=== PATIENT | male | born 1995 | race African-American/Black ===

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

== ENCOUNTER 2017-01-03 01:09 | Emergency (ER) | payer MEDICAID ==
[2017-01-03 01:26] VITALS: BP 109/70
[2017-01-03] MEDS ORDERED: Lidocaine 1% 20 ML MDV INJECT ONE (01:28)
[2017-01-03] MEDS ORDERED: Lidocaine/EPINEPHrine/Tetracaine Soln 1 ML TOP ONE (01:30)
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
== END 2017-01-03 02:54 | disposition home or self-care (01) ==
LOC: MW.ED 01:09
DX: S01.81XA Laceration without foreign body of other part of head, initial encounter (principal); Z90.49 Acquired absence of other specified parts of digestive tract; Z87.891 Personal history of nicotine dependence; J45.909 Unspecified asthma, uncomplicated; Z88.5 Allergy status to narcotic agent; Y04.0XXA Assault by unarmed brawl or fight, initial encounter
CPT/HCPCS: 12011; 99283

== ENCOUNTER 2017-01-08 11:30 | Emergency (ER) | payer MEDICAID ==
[2017-01-08 11:57] VITALS: BP 126/87
== END 2017-01-08 11:56 | disposition left against medical advice (07) ==
LOC: MW.ED 11:30
DX: Z53.21 Procedure and treatment not carried out due to patient leaving prior to being seen by health care provider (principal)

== ENCOUNTER 2017-06-13 10:31 | Emergency (ER) | payer SELFPAY ==
[2017-06-13 10:42] VITALS: BP 139/79
--- NOTE | 2017-06-13 10:57 | EDM.PDOC ---
ED HPI GENERAL MEDICAL PROBLEM - General Chief Complaint: Upper Extremity Injury/Pain Stated Complaint: LT SHOULDER PAIN Time Seen by Provider: 06/13/17 10:34 - History of Present Illness INITIAL COMMENTS - FREE TEXT/NARRATIVE: HISTORY AND PHYSICAL: [] History of Present Illness: []21-year-old male here with left shoulder and right hand pain. States he has been having left shoulder pain for years but this morning with severe shoulder pain. He denies any injury. He states that he slept with it above his head this morning with pain. He also notes he is having right hand pain, broke it 2 years ago. States that he may have hit it a couple of days ago and it is swollen and hurting today. He has not taken anything for his pain today. Review of Systems: As per history of present illness and below otherwise all systems reviewed and negative. Past medical history: As per history of present illness and as reviewed below otherwise noncontributory. Surgical history: As per history of present illness and as reviewed below otherwise noncontributory. Social history: No reported history of drug or alcohol abuse. Family history: As per history of present illness and as reviewed below otherwise noncontributory. Physical exam: HEENT: Atraumatic, normocehpalic, pupils reactive, negative for conjunctival pallor or scleral icterus, mucous membranes moist, throat clear, neck supple, nontender, trachea midline. Lungs: Clear to auscultation, breath sounds equal bilaterally, chest non tender. Heart: S1S2, regular, negative for clicks, rubs, or JVD. Abdomen: Soft, nondistended, nontender. Negative for masses or hepatossplenmegaly. Negative for costovertebral tenderness. Pelvis: Stable nontender. Genitourinary: Deferred. Rectal: Deferred Extremities: No obvious deformity or swelling of the left shoulder. Tenderness to palpation of the anterior shoulder over AC joint. Positive Neer's, empty can , and lift off. Right pinky MCP is mildly swollen with minimal tenderness to palpation. Upper extremity strength is 4 out of 5. Neurovascular unremarkable. Neuro: Awake, alert, oriented. Cranial nerves II through XII unremarkable. Cerebellum unremarkable. Motor and sensory unremarkable throughout. Exam nonfocal. Diagnostics: [] Therapeutics: [] Impression: []Right shoulder pain Plan: []Discharged to home. Diclofenac as prescribed. Follow-up with PCP. Please call for an appointment and establish do not have a primary care provider. [facility] [address] [place] [address] Definitive disposition and diagnosis as appropriate pending reevaluation and review of above. [facility] [address] [place], [place] [id number] left shoulder Pain Score (Numeric/FACES): 10 - Related Data Allergies Allergy/AdvReac Type Severity Reaction Status Date / Time morphine Allergy Rash Verified 06/13/17 10:48 Home Meds: Home Meds Albuterol Sulfate [Proair Hfa] 1 puff IH ASDIRECTED PRN 08/12/16 [History] Diclofenac Sodium [IJD: Diclofenac Sodium] 75 mg PO .TWICE DAILY W MEALS #20 tab.ec 06/13/17 [Rx] Past Medical History - Past Health History Medical/Surgical History: Denies Medical/Surgical History HEENT History: Reports: None Cardiovascular History: Reports: None Respiratory History: Reports: Asthma Gastrointestinal History: Reports: None Genitourinary History: Reports: None Musculoskeletal History: Reports: None Neurological History: Reports: None Psychiatric History: Reports: Suicide Attempt Endocrine/Metabolic History: Reports: None Hematologic History: Reports: None Immunologic History: Reports: None Oncologic (Cancer) History: Reports: None Dermatologic History: Reports: None - Infectious Disease History Infectious Disease History: Reports: None - Past Surgical History Head Surgeries/Procedures: Reports: None HEENT Surgical History: Reports: None GI Surgical History: Reports: Appendectomy Social & Family History - Family History Family Medical History: Noncontributory - Tobacco Use Smoking Status *Q: Never Smoker Years of Tobacco use: 3 Packs/Tins Daily: 1 Used Tobacco, but Quit: Yes Month/Year Tobacco Last Used: 1 Second Hand Smoke Exposure: No - Caffeine Use Caffeine Use: Reports: Soda Caffeine Use Comment: 2drinks/day - Recreational Drug Use Recreational Drug Use: Yes Drug Use in Last 12 Months: Yes Recreational Drug Type: Reports: Marijuana/Hashish Recreational Drug Use Frequency: Daily Recreational Drug Last Use: "a month ago" Review of Systems - Review of Systems Review Of Systems: ROS reveals no pertinent complaints other than HPI. ED EXAM, GENERAL - Physical Exam Exam: See Below (see dictation) Course - Vital Signs Last Recorded V/S: Last Vital Signs Temp 37.3 C 06/13/17 10:41 Pulse 82 06/13/17 10:41 Resp 18 06/13/17 10:41 BP 139/79 06/13/17 10:41 Pulse Ox 97 06/13/17 10:41 Departure - Departure Time of Disposition: 10:58 Disposition: Home, Self-Care 01 Condition: Good Clinical Impression: Left anterior shoulder pain - Discharge Information Prescriptions: Diclofenac Sodium [IJD: Diclofenac Sodium] 75 mg PO .TWICE DAILY W MEALS #20 [email or web address] Referrals: PCP,None [Primary Care Provider] - Forms: ED Department Discharge Additional Instructions: The following information is given to patients seen in the emergency department who are being discharged to home. This information is to outline your options for follow-up care. We provide all patients seen in our emergency department with a follow-up referral. The need for follow-up, as well as the timing and circumstances, are variable depending upon the specifics of your emergency department visit. If you don't have a primary care physician on staff, we will provide you with a referral. We always advise you to contact your personal physician following an emergency department visit to inform them of the circumstance of the visit and for follow-up with them and/or the need for any referrals to a consulting specialist. The emergency department will also refer you to a specialist when appropriate. This referral assures that you have the opportunity for followup care with a specialist. All of these measure are taken in an effort to provide you with optimal care, which includes your followup. Under all circumstances we always encourage you to contact your private physician who remains a resource for coordinating your care. When calling for followup care, please make the office aware that this follow-up is from your recent emergency room visit. If for any reason you are refused follow-up, please contact the [facility] emergency department at and asked to speak to the emergency department charge nurse. Your found to have pain in your right shoulder likely a tendinitis Pain medication of diclofenac has been prescribed to your pharmacy electronically Follow-up with your primary care provider If you do not have a primary care provider call one of these clinics as a ER follow-up and establish care [facility] [address] [place] [address] [place], [place] [phone]
--- NOTE | 2017-06-13 10:59 | EDM.PDOC ---
ED HPI GENERAL MEDICAL PROBLEM - General Chief Complaint: Upper Extremity Injury/Pain Stated Complaint: LT SHOULDER PAIN Time Seen by Provider: 06/13/17 10:34 Source of Information: Reports: Patient History Limitations: Reports: No Limitations - History of Present Illness Onset: Today, Sudden Location: Reports: Upper Extremity, Left, Upper Extremity, Right - Related Data Allergies Allergy/AdvReac Type Severity Reaction Status Date / Time morphine Allergy Rash Verified 01/08/17 11:55 Home Meds: Home Meds Albuterol Sulfate [Proair Hfa] 1 puff IH ASDIRECTED PRN 08/12/16 [History] Past Medical History - Past Health History Medical/Surgical History: Denies Medical/Surgical History HEENT History: Reports: None Cardiovascular History: Reports: None Respiratory History: Reports: Asthma Gastrointestinal History: Reports: None Genitourinary History: Reports: None Musculoskeletal History: Reports: None Neurological History: Reports: None Psychiatric History: Reports: Suicide Attempt Endocrine/Metabolic History: Reports: None Hematologic History: Reports: None Immunologic History: Reports: None Oncologic (Cancer) History: Reports: None Dermatologic History: Reports: None - Infectious Disease History Infectious Disease History: Reports: None - Past Surgical History Head Surgeries/Procedures: Reports: None HEENT Surgical History: Reports: None GI Surgical History: Reports: Appendectomy Social & Family History - Family History Family Medical History: Noncontributory - Tobacco Use Smoking Status *Q: Never Smoker Years of Tobacco use: 3 Packs/Tins Daily: 1 Used Tobacco, but Quit: Yes Month/Year Tobacco Last Used: 1 Second Hand Smoke Exposure: No - Caffeine Use Caffeine Use: Reports: Soda Caffeine Use Comment: 2drinks/day - Recreational Drug Use Recreational Drug Use: Yes Drug Use in Last 12 Months: Yes Recreational Drug Type: Reports: Marijuana/Hashish Recreational Drug Use Frequency: Daily Recreational Drug Last Use: "a month ago" Course - Vital Signs Last Recorded V/S: Last Vital Signs Temp 37.3 C 06/13/17 10:41 Pulse 82 06/13/17 10:41 Resp 18 06/13/17 10:41 BP 139/79 06/13/17 10:41 Pulse Ox 97 06/13/17 10:41 Departure - Discharge Information Referrals: PCP,None [Primary Care Provider] -
== END 2017-06-13 11:40 | disposition home or self-care (01) ==
LOC: MW.ED 10:31
DX: M25.512 Pain in left shoulder (principal); Z88.5 Allergy status to narcotic agent; Z79.899 Other long term (current) drug therapy; Z87.891 Personal history of nicotine dependence
CPT/HCPCS: 99282; 99283

== ENCOUNTER 2017-07-10 06:34 | Emergency (ER) | payer SELFPAY ==
[2017-07-10] MEDS ORDERED: Albuterol/Ipratropium 3.0-0.5 MG/3 ML Neb Soln NEB ONE (06:55)
--- NOTE | 2017-07-10 06:59 | EDM.PDOC ---
ED HPI GENERAL MEDICAL PROBLEM - General Chief Complaint: Respiratory Problem Stated Complaint: ASTHMA Time Seen by Provider: 07/10/17 06:56 Source of Information: Reports: Patient - History of Present Illness INITIAL COMMENTS - FREE TEXT/NARRATIVE: HISTORY AND PHYSICAL: History of present illness: [Patient with asthma presents with 2 weeks of shortness breath and chest tightness after running out of medication last night no fever nausea vomiting chills sweats some shortness breath with exertion no headache dizziness palpitation no bowel or urine symptoms ] Review of systems: As per history of present illness and below otherwise all systems reviewed and negative. Past medical history: As per history of present illness and as reviewed below otherwise noncontributory. Surgical history: As per history of present illness and as reviewed below otherwise noncontributory. Social history: No reported history of drug or alcohol abuse. Family history: As per history of present illness and as reviewed below otherwise noncontributory. Physical exam: HEENT: Atraumatic, normocephalic, pupils reactive, negative for conjunctival pallor or scleral icterus, mucous membranes moist, throat clear, neck supple, nontender, trachea midline. Lungs: Clear to auscultation, breath sounds equal bilaterally, chest nontender. post DuoNeb Heart: S1S2, regular, negative for clicks, rubs, or JVD. Abdomen: Soft, nondistended, nontender. Negative for masses or hepatosplenomegaly. Negative for costovertebral tenderness. Pelvis: Stable nontender. Genitourinary: Deferred. Rectal: Deferred. Extremities: Atraumatic, negative for cords or calf pain. Neurovascular unremarkable. Neuro: Awake, alert, oriented. Cranial nerves II through XII unremarkable. Cerebellum unremarkable. Motor and sensory unremarkable throughout. Exam nonfocal. Diagnostics: [Influenza Chest 2 views ] Therapeutics: [DuoNeb ] Solu-Medrol 125 mg IM Medrol Dosepak DuoNeb's HFA Z-Eduardo Impression Acute bronchitis asthma exacerbation Definitive disposition and diagnosis as appropriate pending reevaluation and review of above. chest pain Pain Score (Numeric/FACES): 5 - Related Data Allergies Allergy/AdvReac Type Severity Reaction Status Date / Time morphine Allergy Rash Verified 07/10/17 06:37 Home Meds: Home Meds Albuterol Sulfate [Proair Hfa] 1 puff IH ASDIRECTED PRN 08/12/16 [History] Past Medical History - Past Health History Medical/Surgical History: Denies Medical/Surgical History HEENT History: Reports: None Cardiovascular History: Reports: None Respiratory History: Reports: Asthma Gastrointestinal History: Reports: None Genitourinary History: Reports: None Musculoskeletal History: Reports: None Neurological History: Reports: None Psychiatric History: Reports: Suicide Attempt Endocrine/Metabolic History: Reports: None Hematologic History: Reports: None Immunologic History: Reports: None Oncologic (Cancer) History: Reports: None Dermatologic History: Reports: None - Infectious Disease History Infectious Disease History: Reports: None - Past Surgical History Head Surgeries/Procedures: Reports: None HEENT Surgical History: Reports: None GI Surgical History: Reports: Appendectomy Social & Family History - Family History Family Medical History: Noncontributory - Tobacco Use Smoking Status *Q: Never Smoker Years of Tobacco use: 3 Packs/Tins Daily: 1 Used Tobacco, but Quit: Yes Month/Year Tobacco Last Used: 1 Second Hand Smoke Exposure: No - Caffeine Use Caffeine Use: Reports: Energy Drinks Caffeine Use Comment: 2drinks/day - Recreational Drug Use Recreational Drug Use: Yes Drug Use in Last 12 Months: Yes Recreational Drug Type: Reports: Marijuana/Hashish Recreational Drug Use Frequency: Daily Recreational Drug Last Use: "a month ago" ED ROS GENERAL - Review of Systems Review Of Systems: ROS reveals no pertinent complaints other than HPI. ED EXAM, GENERAL - Physical Exam Exam: See Below Course - Vital Signs Last Recorded V/S: Last Vital Signs Temp 97.6 F 07/10/17 06:38 Pulse 84 07/10/17 06:38 Resp 19 07/10/17 06:38 BP 124/86 07/10/17 06:38 Pulse Ox 95 07/10/17 06:38 - Orders/Labs/Meds Orders: Active Orders 24 hr Category Date Time Status RT Aerosol Therapy [RC] ASDIRECTED Care 07/10/17 06:55 Active Chest 2V [CR] Stat Exams 07/10/17 06:55 Ordered INFLUENZA A+B AG SCREEN [RM] Stat Lab 07/10/17 07:01 Ordered Meds: Medications Discontinued Medications Generic Name Dose Route Start Last Admin Trade Name Freq PRN Reason Stop Dose Admin Albuterol/Ipratropium 3 ml 07/10/17 06:55 07/10/17 07:05 Duoneb 3.0-0.5 Mg/3 Ml NEB 07/10/17 06:56 3 ml ONETIME ONE Administration Methylprednisolone Sodium Succinate 125 mg 07/10/17 07:02 07/10/17 07:10 Solu-Medrol IM 07/10/17 07:03 125 mg ONETIME ONE Administration Departure - Departure Time of Disposition: 07:32 Disposition: Home, Self-Care 01 Condition: Good Clinical Impression: Exacerbation of asthma, Acute bronchitis - Discharge Information Referrals: PCP,None [Primary Care Provider] - Forms: ED Department Discharge Additional Instructions: The following information is given to patients seen in the emergency department who are being discharged to home. This information is to outline your options for follow-up care. We provide all patients seen in our emergency department with a follow-up referral. The need for follow-up, as well as the timing and circumstances, are variable depending upon the specifics of your emergency department visit. If you don't have a primary care physician on staff, we will provide you with a referral. We always advise you to contact your personal physician following an emergency department visit to inform them of the circumstance of the visit and for follow-up with them and/or the need for any referrals to a consulting specialist. The emergency department will also refer you to a specialist when appropriate. This referral assures that you have the opportunity for follow-up care with a specialist. All of these measure are taken in an effort to provide you with optimal care, which includes your follow-up. Under all circumstances we always encourage you to contact your private physician who remains a resource for coordinating your care. When calling for follow-up care, please make the office aware that this follow-up is from your recent emergency room visit. If for any reason you are refused follow-up, please contact the [facility] emergency department at and asked to speak to the emergency department charge nurse. - My Orders Last 24 Hours: My Active Orders 07/10/17 06:55 RT Aerosol Therapy [RC] ASDIRECTED Chest 2V [CR] Stat 07/10/17 07:01 INFLUENZA A+B AG SCREEN [RM] Stat - Assessment/Plan Last 24 Hours: My Active Orders 07/10/17 06:55 RT Aerosol Therapy [RC] ASDIRECTED Chest 2V [CR] Stat 07/10/17 07:01 INFLUENZA A+B AG SCREEN [RM] Stat
[2017-07-10] MEDS ORDERED: methylPREDNISolone Sodium Succinate 125 MG/2 ML SDV IM ONE (07:02)
[2017-07-10 07:42] VITALS: BP 147/87
--- NOTE | 2017-07-10 16:41 | CR ---
EXAM DATE: 07/10/17 PATIENT'S AGE: 21 Patient: KEVON JONES Facility: [place], [place] Site . Site : 1997 Study: XRay Chest [id number]/20/2018 7:30:57 AM Ordering Physician: Doctor Dotson Final Report: HISTORY: Shortness of breath, asthma. TECHNIQUE: Two views of the chest. COMPARISON: 10/30/2016. FINDINGS: The cardiac size and pulmonary vasculature are within normal limits. There is no acute lung infiltrate or pulmonary edema. No pneumothorax or pleural effusion. No acute bony abnormality. IMPRESSION: No acute disease. Dictated by Kenny Bateman MD @ 07/10/2017 7:35:02 AM Dictated by: Kenny Bateman MD @ 07/10/2017 07:35:06 (Electronic Signature) Report Signed by Proxy. CHARITO
== END 2017-07-10 07:41 | disposition home or self-care (01) ==
LOC: MW.ED 06:34
DX: J45.901 Unspecified asthma with (acute) exacerbation (principal); J20.9 Acute bronchitis, unspecified; Z88.5 Allergy status to narcotic agent; Z87.891 Personal history of nicotine dependence
CPT/HCPCS: 71046; 87804; 94640; 96372; 99283; J2930

== ENCOUNTER 2017-09-14 11:31 | Emergency (ER) | payer SELFPAY ==
[2017-09-14] MEDS ORDERED: Ketorolac 60 MG/2 ML SDV IM ONE (11:40)
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
--- NOTE | 2017-09-14 12:19 | CR ---
EXAMINATION: Left shoulder HISTORY: Pain COMPARISON: None TECHNIQUE: 3 views FINDINGS/IMPRESSION: There is no acute osseous abnormality, dislocation, or fracture. Bone mineraliza tion and joint spaces appear normal.
[2017-09-14 13:24] VITALS: BP 126/66
== END 2017-09-14 12:59 | disposition home or self-care (01) ==
LOC: MW.ED 11:31
DX: S49.92XD Unspecified injury of left shoulder and upper arm, subsequent encounter (principal); Z88.5 Allergy status to narcotic agent; V93.3 Fall on board watercraft
CPT/HCPCS: 73030; 96372; 99283; J1885

== ENCOUNTER 2017-10-06 21:54 | Emergency (ER) | payer SELFPAY ==
[2017-10-06] MEDS ORDERED: Sodium Chloride 0.9% 1,000 ML IV ONE (21:57)
[2017-10-06] MEDS ORDERED: methylPREDNISolone Sodium Succinate 125 MG/2 ML SDV IVPUSH ONE (21:57)
[2017-10-06] MEDS ORDERED: Sodium Chloride 0.9% 2.5 ML Syringe FLUSH PRN (21:57)
[2017-10-06] MEDS ORDERED: Albuterol/Ipratropium 3.0-0.5 MG/3 ML Neb Soln NEB ONE (21:57)
[2017-10-06] MEDS ORDERED: Sodium Chloride 0.9% 10 ML Syringe FLUSH PRN (21:57)
[2017-10-06 22:00] VITALS: BP 110/79
--- NOTE | 2017-10-06 22:01 | EDM.PDOC ---
ED HPI GENERAL MEDICAL PROBLEM - General Stated Complaint: ASTHMA/SHORT OF BREATH Time Seen by Provider: 10/06/17 21:57 - History of Present Illness INITIAL COMMENTS - FREE TEXT/NARRATIVE: HISTORY AND PHYSICAL: History of present illness: The patient is a 22-year-old male with a known history of asthma who gets attacks and flareups seasonally and is currently working in [employer] and presents with complaints of 30 minutes of shortness of breath chest tightness and a full day of allergy symptoms including sneezing runny nose and a sore throat. The patient has a rescue inhaler but no preventative as he said he cannot afford it. He says that usually his attacks will occur after he is exposed to the environment and he finished his work and went home and this started 30 minutes ago. He is not having abdominal pain or vomiting and has had no fevers. He otherwise was in his usual state of good health before this started. He said this is the usual presentation of his asthma. Review of systems: As per history of present illness and below otherwise all systems reviewed and negative. Past medical history: As per history of present illness and as reviewed below otherwise noncontributory. Surgical history: As per history of present illness and as reviewed below otherwise noncontributory. Social history: No reported history of drug or alcohol abuse. Family history: As per history of present illness and as reviewed below otherwise noncontributory. Physical exam: General: Well-developed well-nourished man who is speaking very softly and is somewhat breathless on my evaluation. His O2 sat was 93% on room air. He has a dry cough HEENT: Atraumatic, normocephalic, negative for conjunctival pallor or scleral icterus, mucous membranes moist, throat clear there is posterior oropharyngeal erythema but uvula is midline and there is no cervical adenopathy or nuchal rigidity,, neck supple, nontender, trachea midline. Lungs: Diminished breath sounds and exchange throughout with some scattered wheezing and there is some abdominal work of breathing, there is no stridor breath sounds equal bilaterally, chest nontender. Heart: S1S2, regular rhythm and sightly tachycardic rate on my evaluation but no overt murmur Abdomen: Soft, nondistended, nontender. NABS Pelvis: Deferred Genitourinary: Deferred. Rectal: Deferred. Extremities: Atraumatic, negative for cords or calf pain. Neurovascular unremarkable. Neuro: Awake, alert, oriented. Cranial nerves II through XII unremarkable. Cerebellum unremarkable. Motor and sensory unremarkable throughout. Exam nonfocal. Diagnostics: Rapid strep chest x-ray Therapeutics: IV fluids duo neb Solu-Medrol He is moving air much better after the duo neb and would like to hold off doing a second one at this time. I talked to him about his work and allergy symptoms and needing to be on maintenance such as Edel or Claritin [id number] and using Flonase. He has taken the oxygen off as he does not like the way it feels. We'll continue to monitor his progress and disposition once the chest x- ray is performed and resulted. He is aware of chest x-ray result and would like to go home. I will give him a spacer to use with his inhaler, and albuterol refill and prednisone. Impression: Asthma exacerbation Definitive disposition and diagnosis as appropriate pending reevaluation and review of above. Chest Pain Score (Numeric/FACES): 4 - Related Data Allergies Allergy/AdvReac Type Severity Reaction Status Date / Time morphine Allergy Rash Verified 09/14/17 11:41 Home Meds: Home Meds Albuterol Sulfate [Proair Hfa] 1 puff IH ASDIRECTED PRN 08/12/16 [History] Past Medical History - Past Health History Medical/Surgical History: Denies Medical/Surgical History HEENT History: Reports: None Cardiovascular History: Reports: None Respiratory History: Reports: Asthma Gastrointestinal History: Reports: None Genitourinary History: Reports: None Musculoskeletal History: Reports: None Neurological History: Reports: None Psychiatric History: Reports: Suicide Attempt Endocrine/Metabolic History: Reports: None Hematologic History: Reports: None Immunologic History: Reports: None Oncologic (Cancer) History: Reports: None Dermatologic History: Reports: None - Infectious Disease History Infectious Disease History: Reports: None - Past Surgical History Head Surgeries/Procedures: Reports: None HEENT Surgical History: Reports: None GI Surgical History: Reports: Appendectomy Social & Family History - Family History Family Medical History: Noncontributory - Caffeine Use Caffeine Use: Reports: Energy Drinks Caffeine Use Comment: 2drinks/day ED ROS GENERAL - Review of Systems Review Of Systems: ROS reveals no pertinent complaints other than HPI. ED EXAM, GENERAL - Physical Exam Exam: See Below (See dictation) Course - Vital Signs Last Recorded V/S: Last Vital Signs Temp 36.6 C 10/06/17 21:59 Pulse 110 H 10/06/17 21:59 Resp 24 H 10/06/17 21:59 BP 110/79 10/06/17 21:59 Pulse Ox 93 L 10/06/17 21:59 - Orders/Labs/Meds Orders: Active Orders 24 hr Category Date Time Status RT Aerosol Therapy [RC] ASDIRECTED Care 10/06/17 21:58 Active Chest 1V Frontal [CR] Stat Exams 10/06/17 21:57 Taken CULTURE STREP A CONFIRMATION [] Stat Lab 10/06/17 22:11 Results STREP SCRN A RAPID W CULT CONF [] Stat Lab 10/06/17 22:11 Ordered Sodium Chloride 0.9% [Saline Flush] Med 10/06/17 21:57 Active 10 ml FLUSH ASDIRECTED PRN Sodium Chloride 0.9% [Saline Flush] Med 10/06/17 21:57 Active 2.5 ml FLUSH ASDIRECTED PRN Saline Lock Insert [OM.PC] Stat Oth 10/06/17 21:57 Ordered Medication Orders Sodium Chloride (Saline Flush) 10 ml FLUSH ASDIRECTED PRN PRN Reason: Keep Vein Open Last Admin: 10/06/17 22:08 Dose: 10 ml Sodium Chloride (Saline Flush) 2.5 ml FLUSH ASDIRECTED PRN PRN Reason: Keep Vein Open Last Admin: 10/06/17 22:08 Dose: 2.5 ml Meds: Medications Generic Name Dose Route Start Last Admin Trade Name Freq PRN Reason Stop Dose Admin Sodium Chloride 10 ml 10/06/17 21:57 10/06/17 22:08 Saline Flush FLUSH 10 ml ASDIRECTED PRN Administration Keep Vein Open Sodium Chloride 2.5 ml 10/06/17 21:57 10/06/17 22:08 Saline Flush FLUSH 2.5 ml ASDIRECTED PRN Administration Keep Vein Open Discontinued Medications Generic Name Dose Route Start Last Admin Trade Name Freq PRN Reason Stop Dose Admin Albuterol/Ipratropium 3 ml 10/06/17 21:57 10/06/17 22:07 Duoneb 3.0-0.5 Mg/3 Ml NEB 07/17/18 21:58 3 ml ONETIME ONE Administration Sodium Chloride 1,000 mls @ 999 mls/hr 10/06/17 21:57 10/06/17 22:07 Normal Saline IV 10/06/17 22:57 999 mls/hr STAT ONE Administration Methylprednisolone Sodium Succinate 125 mg 10/06/17 21:57 10/06/17 22:07 Solu-Medrol IVPUSH 10/06/17 21:58 125 mg ONETIME ONE Administration Methylprednisolone Sodium Succinate Confirm 10/06/17 22:09 10/06/17 22:13 Solu-Medrol Administered 10/06/17 22:10 Not Given Dose 125 mg .ROUTE .STK-MED ONE Departure - Departure Time of Disposition: 23:31 Disposition: Home, Self-Care 01 Condition: Good Clinical Impression: Exacerbation of asthma Qualifiers: Asthma severity: mild Asthma persistence: unspecified Qualified Code(s): J45.901 - Unspecified asthma with (acute) exacerbation - Discharge Information Referrals: PCP,None [Primary Care Provider] - Additional Instructions: The following information is given to patients seen in the emergency department who are being discharged to home. This information is to outline your options for follow-up care. We provide all patients seen in our emergency department with a follow-up referral. The need for follow-up, as well as the timing and circumstances, are variable depending upon the specifics of your emergency department visit. If you don't have a primary care physician on staff, we will provide you with a referral. We always advise you to contact your personal physician following an emergency department visit to inform them of the circumstance of the visit and for follow-up with them and/or the need for any referrals to a consulting specialist. The emergency department will also refer you to a specialist when appropriate. This referral assures that you have the opportunity for followup care with a specialist. All of these measure are taken in an effort to provide you with optimal care, which includes your followup. Under all circumstances we always encourage you to contact your private physician who remains a resource for coordinating your care. When calling for followup care, please make the office aware that this follow-up is from your recent emergency room visit. If for any reason you are refused follow-up, please contact the [facility] emergency department at and ask to speak to the emergency department charge nurse. [facility] Primary care- [place] [address] Please use your inhaler , albuterol with a spacer you have been given and take prednisone as directed. Please call and schedule a follow-up appointment with one of our providers to get on preventative therapy for your asthma. Treat weight and environmental exposures and use [id number] Claritin/Edel as well as Flonase to help you with your other symptoms. Push hydration and return to ER as needed and as discussed Have been given albuterol and prednisone from [facility] - My Orders Last 24 Hours: My Active Orders 10/06/17 21:57 Chest 1V Frontal [CR] Stat Sodium Chloride 0.9% [Saline Flush] 10 ml FLUSH ASDIRECTED PRN Sodium Chloride 0.9% [Saline Flush] 2.5 ml FLUSH ASDIRECTED PRN Saline Lock Insert [OM.PC] Stat 10/06/17 21:58 RT Aerosol Therapy [RC] ASDIRECTED 10/06/17 22:11 CULTURE STREP A CONFIRMATION [RM] Stat STREP SCRN A RAPID W CULT CONF [RM] Stat - Assessment/Plan Last 24 Hours: My Active Orders 10/06/17 21:57 Chest 1V Frontal [CR] Stat Sodium Chloride 0.9% [Saline Flush] 10 ml FLUSH ASDIRECTED PRN Sodium Chloride 0.9% [Saline Flush] 2.5 ml FLUSH ASDIRECTED PRN Saline Lock Insert [OM.PC] Stat 10/06/17 21:58 RT Aerosol Therapy [RC] ASDIRECTED 10/06/17 22:11 CULTURE STREP A CONFIRMATION [RM] Stat STREP SCRN A RAPID W CULT CONF [RM] Stat
[2017-10-06] MEDS ORDERED: methylPREDNISolone Sodium Succinate 125 MG/2 ML SDV ONE (22:09)
--- NOTE | 2017-10-07 10:36 | CR ---
EXAM DATE: 10/06/17 PATIENT'S AGE: 22 Patient: KEVON JONES Facility: [place], [place] Site . Site : 1997 Study: XRay Chest [id number]/17/2018 11:06:41 PM Ordering Physician: Romain Cosme Final Report: INDICATION: Shortness of breath, asthma TECHNIQUE: Chest radiograph 1 view COMPARISON: None FINDINGS: Mediastinum: The mediastinum is normal in appearance. The heart silhouette is normal in size and morphology. Lungs: Both lungs are unremarkable in appearance. No sign of pleural effusion seen. No pneumothorax is identified. Bones and soft tissue: Unremarkable for age. IMPRESSION: 1. No acute cardiopulmonary disease is seen. Dictated by: Zander Mariano MD @ 10/06/2017 23:08:13 (Electronic Signature) Report Signed by Proxy. [facility] HOSPITALGrecia
== END 2017-10-06 23:50 | disposition home or self-care (01) ==
LOC: MW.ED 21:54
DX: J45.901 Unspecified asthma with (acute) exacerbation (principal); Z88.5 Allergy status to narcotic agent
CPT/HCPCS: 71045; 87081; 87880; 96361; 96374; 99285; J2930; J7040

== ENCOUNTER 2017-11-06 20:00 | Emergency (ER) | payer SELFPAY ==
[2017-11-06] MEDS ORDERED: predniSONE 20 MG Tab PO ONE (20:32)
[2017-11-06] MEDS ORDERED: Albuterol/Ipratropium 3.0-0.5 MG/3 ML Neb Soln NEB ONE (20:35)
--- NOTE | 2017-11-06 20:39 | EDM.PDOC ---
ED HPI GENERAL MEDICAL PROBLEM - General Chief Complaint: Respiratory Problem Stated Complaint: PT HAS CHEST PAINS Time Seen by Provider: 11/06/17 20:25 - History of Present Illness INITIAL COMMENTS - FREE TEXT/NARRATIVE: HISTORY AND PHYSICAL: History of present illness: Patient's 22-year-old male presents with concern of shortness of breath and chest pain he states he was exposed to some dust and grass clippings which typically precipitate exacerbations he did use his inhaler prior to arrival since arrival he has had dramatic improvement. Review of systems: As per history of present illness and below otherwise all systems reviewed and negative. Past medical history: As per history of present illness and as reviewed below otherwise noncontributory. Surgical history: As per history of present illness and as reviewed below otherwise noncontributory. Social history: No reported history of drug or alcohol abuse. Family history: As per history of present illness and as reviewed below otherwise noncontributory. Physical exam: HEENT: Atraumatic, normocephalic, pupils reactive, negative for conjunctival pallor or scleral icterus, mucous membranes moist, throat clear, neck supple, nontender, trachea midline. Lungs: Clear to auscultation, breath sounds equal bilaterally, chest nontender. Heart: S1S2, regular, negative for clicks, rubs, or JVD. Abdomen: Soft, nondistended, nontender. Negative for masses or hepatosplenomegaly. Negative for costovertebral tenderness. Pelvis: Stable nontender. Genitourinary: Deferred. Rectal: Deferred. Extremities: Atraumatic, negative for cords or calf pain. Neurovascular unremarkable. Neuro: Awake, alert, oriented. Cranial nerves II through XII unremarkable. Cerebellum unremarkable. Motor and sensory unremarkable throughout. Exam nonfocal. Diagnostics: None Therapeutics: Prednisone 60 mg by mouth Impression: #1 medical screening exam #2 asthma Definitive disposition and diagnosis as appropriate pending reevaluation and review of above. chest Pain Score (Numeric/FACES): 8 - Related Data Allergies Allergy/AdvReac Type Severity Reaction Status Date / Time morphine Allergy Rash Verified 11/06/17 20:26 Home Meds: Home Meds Albuterol Sulfate [Proair Hfa] 1 puff IH ASDIRECTED PRN 08/12/16 [History] Past Medical History - Past Health History Medical/Surgical History: Denies Medical/Surgical History HEENT History: Reports: None Cardiovascular History: Reports: None Respiratory History: Reports: Asthma Gastrointestinal History: Reports: None Genitourinary History: Reports: None Musculoskeletal History: Reports: None Neurological History: Reports: None Psychiatric History: Reports: Suicide Attempt Endocrine/Metabolic History: Reports: None Hematologic History: Reports: None Immunologic History: Reports: None Oncologic (Cancer) History: Reports: None Dermatologic History: Reports: None - Infectious Disease History Infectious Disease History: Reports: None - Past Surgical History Head Surgeries/Procedures: Reports: None HEENT Surgical History: Reports: None GI Surgical History: Reports: Appendectomy Social & Family History - Family History Family Medical History: Noncontributory - Caffeine Use Caffeine Use: Reports: Energy Drinks Caffeine Use Comment: 2drinks/day ED ROS GENERAL - Review of Systems Review Of Systems: ROS reveals no pertinent complaints other than HPI. ED EXAM, GENERAL - Physical Exam Exam: See Below (The dictation) Course - Vital Signs Last Recorded V/S: Last Vital Signs Temp 36.2 C 11/06/17 20:22 Pulse 101 H 11/06/17 20:22 Resp 20 11/06/17 20:22 BP 120/92 H 11/06/17 20:22 Pulse Ox 92 L 11/06/17 20:22 - Orders/Labs/Meds Orders: Active Orders 24 hr Category Date Time Status predniSONE Med 11/06/17 20:32 Once 60 mg PO ONETIME ONE Departure - Departure Time of Disposition: 20:34 Disposition: Home, Self-Care 01 Condition: Good Clinical Impression: Asthma, Encounter for medical screening examination - Discharge Information *PRESCRIPTION DRUG MONITORING PROGRAM REVIEWED*: Not Applicable *COPY OF PRESCRIPTION DRUG MONITORING REPORT IN PATIENT WILEY: Not Applicable Referrals: PCP,None [Primary Care Provider] - Additional Instructions: The following information is given to patients seen in the emergency department who are being discharged to home. This information is to outline your options for follow-up care. We provide all patients seen in our emergency department with a follow-up referral. The need for follow-up, as well as the timing and circumstances, are variable depending upon the specifics of your emergency department visit. If you don't have a primary care physician on staff, we will provide you with a referral. We always advise you to contact your personal physician following an emergency department visit to inform them of the circumstance of the visit and for follow-up with them and/or the need for any referrals to a consulting specialist. The emergency department will also refer you to a specialist when appropriate. This referral assures that you have the opportunity for followup care with a specialist. All of these measure are taken in an effort to provide you with optimal care, which includes your followup. Under all circumstances we always encourage you to contact your private physician who remains a resource for coordinating your care. When calling for followup care, please make the office aware that this follow-up is from your recent emergency room visit. If for any reason you are refused follow-up, please contact the [facility] emergency department at and asked to speak to the emergency department charge nurse. Medrol as prescribed continue inhaler as directed return as needed as discussed follow-up with primary medical doctor as needed as discussed - My Orders Last 24 Hours: My Active Orders 11/06/17 20:32 predniSONE 60 mg PO ONETIME ONE - Assessment/Plan Last 24 Hours: My Active Orders 11/06/17 20:32 predniSONE 60 mg PO ONETIME ONE
[2017-11-06 20:58] VITALS: BP 117/60
== END 2017-11-06 21:02 | disposition home or self-care (01) ==
LOC: MW.ED 20:00
DX: J45.909 Unspecified asthma, uncomplicated (principal); Z88.5 Allergy status to narcotic agent
CPT/HCPCS: 99284; A9270; 99282

== ENCOUNTER 2017-11-18 02:02 | Emergency (ER) | payer MEDICAID ==
[2017-11-18] MEDS ORDERED: Albuterol/Ipratropium 3.0-0.5 MG/3 ML Neb Soln NEB ONE ×2 (02:04→02:30)
[2017-11-18] MEDS ORDERED: predniSONE 20 MG Tab PO ONE (02:04)
[2017-11-18] MEDS ORDERED: Albuterol/Ipratropium 3.0-0.5 MG/3 ML Neb Soln ONE (02:04)
--- NOTE | 2017-11-18 02:04 | EDM.PDOC ---
ED HPI GENERAL MEDICAL PROBLEM - General Stated Complaint: SHORTNESS OF BREATH Time Seen by Provider: 11/18/17 02:03 Source of Information: Reports: Patient History Limitations: Reports: No Limitations - History of Present Illness INITIAL COMMENTS - FREE TEXT/NARRATIVE: HISTORY AND PHYSICAL: History of present illness: 22-year-old male presenting to emergency department chief complaint shortness of breath with past medical history of asthma. Patient is well-known to emergency department has had multiple visits for similar symptoms. Patient states that approximately 1 hour became somewhat short of breath. He did take his inhaler but states it didn't improve so came to emergency department for further evaluation. He denies any associated fever, chills, cough, abdominal pain, nausea, vomiting, diarrhea, or other signs of systemic infection. States that cold weather makes his symptoms worse which is why he is having difficulty recently. On exam, generalized wheezing throughout. Worse on left than right. Review of systems: As per history of present illness and below otherwise all systems reviewed and negative. Past medical history: As per history of present illness and as reviewed below otherwise noncontributory. Surgical history: As per history of present illness and as reviewed below otherwise noncontributory. Social history: No reported history of drug or alcohol abuse. Family history: As per history of present illness and as reviewed below otherwise noncontributory. Physical exam: See above HEENT: Atraumatic, normocephalic, pupils reactive, negative for conjunctival pallor or scleral icterus, mucous membranes moist, throat clear, neck supple, nontender, trachea midline. Lungs: Generalized wheezing, breath sounds equal bilaterally, chest nontender. Heart: S1S2, regular, negative for clicks, rubs, or JVD. Abdomen: Soft, nondistended, nontender. Negative for masses or hepatosplenomegaly. Negative for costovertebral tenderness. Pelvis: Stable nontender. Genitourinary: Deferred. Rectal: Deferred. Extremities: Atraumatic, negative for cords or calf pain. Neurovascular unremarkable. Neuro: Awake, alert, oriented. Cranial nerves II through XII unremarkable. Cerebellum unremarkable. Motor and sensory unremarkable throughout. Exam nonfocal. Diagnostics: Chest x-ray Therapeutics: Duo-neb x2 Prednisone 60 mg PO x1 Prednisone 40 mg PO q day x 4 Impression: Asthma exacerbation Shortness of breath Plan: After 2 DuoNeb's patient had significant improvement in his respiratory status. Still had decerebrate movement but wheezing had almost completely resolved. He was also given prednisone 60 mg by mouth here in the emergency department. Chest x-ray was unremarkable. He was discharged in good condition with instructions to follow-up with primary care provider and return to emergency department if any new or worsening symptoms. Was also given a prescription for prednisone 40 mg by mouth daily 4 days. Definitive disposition and diagnosis as appropriate pending reevaluation and review of above. - Related Data Allergies Allergy/AdvReac Type Severity Reaction Status Date / Time morphine Allergy Rash Verified 11/06/17 20:26 Home Meds: Home Meds Albuterol Sulfate [Proair Hfa] 1 puff IH ASDIRECTED PRN 08/12/16 [History] Past Medical History - Past Health History Medical/Surgical History: Denies Medical/Surgical History HEENT History: Reports: None Cardiovascular History: Reports: None Respiratory History: Reports: Asthma Gastrointestinal History: Reports: None Genitourinary History: Reports: None Musculoskeletal History: Reports: None Neurological History: Reports: None Psychiatric History: Reports: Suicide Attempt Endocrine/Metabolic History: Reports: None Hematologic History: Reports: None Immunologic History: Reports: None Oncologic (Cancer) History: Reports: None Dermatologic History: Reports: None - Infectious Disease History Infectious Disease History: Reports: None - Past Surgical History Head Surgeries/Procedures: Reports: None HEENT Surgical History: Reports: None GI Surgical History: Reports: Appendectomy Social & Family History - Family History Family Medical History: Noncontributory - Caffeine Use Caffeine Use: Reports: Energy Drinks Caffeine Use Comment: 2drinks/day ED ROS GENERAL - Review of Systems Review Of Systems: ROS reveals no pertinent complaints other than HPI. ED EXAM, GENERAL - Physical Exam Exam: See Below Course - Vital Signs Last Recorded V/S: Last Vital Signs Temp 97.5 F 11/18/17 02:09 Pulse 94 11/18/17 02:09 Resp 16 11/18/17 02:09 BP 111/87 11/18/17 02:09 Pulse Ox 95 11/18/17 02:09 - Orders/Labs/Meds Orders: Active Orders 24 hr Category Date Time Status RT Aerosol Therapy [RC] ASDIRECTED Care 11/18/17 02:04 Active RT Aerosol Therapy [RC] ASDIRECTED Care 11/18/17 02:30 Active CXR [Chest 2V] [CR] Stat Exams 11/18/17 02:22 Taken Meds: Medications Discontinued Medications Generic Name Dose Route Start Last Admin Trade Name Dasia PRN Reason Stop Dose Admin Albuterol/Ipratropium 3 ml 11/18/17 02:04 11/18/17 02:14 Duoneb 3.0-0.5 Mg/3 Ml NEB 11/18/17 02:05 3 ml ONETIME ONE Administration Albuterol/Ipratropium Confirm 11/18/17 02:04 11/18/17 02:11 Duoneb 3.0-0.5 Mg/3 Ml Administered 11/18/17 02:05 Not Given Dose 3 ml .ROUTE .STK-MED ONE Albuterol/Ipratropium 3 ml 11/18/17 02:30 11/18/17 02:45 Duoneb 3.0-0.5 Mg/3 Ml NEB 11/18/17 02:31 3 ml ONETIME ONE Administration Prednisone 60 mg 11/18/17 02:04 11/18/17 02:14 Prednisone PO 11/18/17 02:05 60 mg ONETIME ONE Administration Departure - Departure Time of Disposition: 03:10 Disposition: Home, Self-Care 01 Condition: Good Clinical Impression: Shortness of breath Asthma exacerbation Qualifiers: Asthma severity: mild Asthma persistence: unspecified Qualified Code(s): J45.901 - Unspecified asthma with (acute) exacerbation - Discharge Information Referrals: PCP,None [Primary Care Provider] - Additional Instructions: My general discharge The following information is given to patients seen in the emergency department who are being discharged to home. This information is to outline your options for follow-up care. We provide all patients seen in our emergency department with a follow-up referral. The need for follow-up, as well as the timing and circumstances, are variable depending upon the specifics of your emergency department visit. If you don't have a primary care physician on staff, we will provide you with a referral. We always advise you to contact your personal physician following an emergency department visit to inform them of the circumstance of the visit and for follow-up with them and/or the need for any referrals to a consulting specialist. The emergency department will also refer you to a specialist when appropriate. This referral assures that you have the opportunity for follow-up care with a specialist. All of these measure are taken in an effort to provide you with optimal care, which includes your follow-up. Under all circumstances we always encourage you to contact your private physician who remains a resource for coordinating your care. When calling for follow-up care, please make the office aware that this follow-up is from your recent emergency room visit. If for any reason you are refused follow-up, please contact the [facility] Emergency Department at and asked to speak to the emergency department charge nurse. [facility] [address] [place] [id number] [facility] [address] [place] [id number] Please follow-up with your primary care provider. Be sure to tell them that he received in the emergency department and a widely to be seen as soon as possible. Take medication as prescribed. Return to emergency department if any new or worsening symptoms. - My Orders Last 24 Hours: My Active Orders 11/18/17 02:04 RT Aerosol Therapy [RC] ASDIRECTED 11/18/17 02:22 CXR [Chest 2V] [CR] Stat 11/18/17 02:30 RT Aerosol Therapy [RC] ASDIRECTED - Assessment/Plan Last 24 Hours: My Active Orders 11/18/17 02:04 RT Aerosol Therapy [RC] ASDIRECTED 11/18/17 02:22 CXR [Chest 2V] [CR] Stat 11/18/17 02:30 RT Aerosol Therapy [RC] ASDIRECTED
[2017-11-18 03:26] VITALS: BP 140/96
--- NOTE | 2017-11-18 12:57 | CR ---
EXAM DATE: 11/18/17 PATIENT'S AGE: 22 Patient: KEVON JONES Facility: [place], [place] Site . Site : 1997 Study: XRay Chest [id number]/29/2018 2:38:23 AM Ordering Physician: Jerrod Carranza Final Report: Indication: SOB Technique: Chest 2 views Comparison: 10/06/2017. Findings/Impression: Cardiovascular and mediastinum: Heart size and vasculature are normal in caliber and appearance. Mediastinum is within normal limits. Lungs and pleural spaces: Lungs are clear. No sign of infiltrate or mass. No sign of pleural effusion. No pneumothorax. Bones and soft tissues: No significant findings. Dictated by Blas Grayson MD @ 11/18/2017 2:50:52 AM Dictated by: Blas Grayson MD @ 11/18/2017 02:51:04 (Electronic Signature) Report Signed by Proxy. CHARITO
== END 2017-11-18 03:26 | disposition home or self-care (01) ==
LOC: MW.ED 02:02
DX: J45.901 Unspecified asthma with (acute) exacerbation (principal); Z88.5 Allergy status to narcotic agent
CPT/HCPCS: 71046; 99285; A9270; J7620-GY

== ENCOUNTER 2018-06-13 11:14 | Emergency (ER) | payer MEDICAID ==
[2018-06-13] MEDS ORDERED: LORazepam 2 MG/ML SDV IVPUSH ONE (11:15)
[2018-06-13] MEDS ORDERED: Sodium Chloride 0.9% 1,000 ML IV ONE (11:15)
--- NOTE | 2018-06-13 11:19 | EDM.PDOC ---
ED HPI GENERAL MEDICAL PROBLEM - General Chief Complaint: Headache Stated Complaint: SPOKE TO NURSE Time Seen by Provider: 06/13/18 11:18 Source of Information: Reports: Patient - History of Present Illness INITIAL COMMENTS - FREE TEXT/NARRATIVE: HISTORY AND PHYSICAL: History of present illness: [Patient has a headache 5 out of 10 diffuse he attributes to recent cocaine use on exam he is sinus tenderness right greater than left supraorbital and maxillary sinuses No fever nausea vomiting chills sweats] Review of systems: As per history of present illness and below otherwise all systems reviewed and negative. Past medical history: As per history of present illness and as reviewed below otherwise noncontributory. Surgical history: As per history of present illness and as reviewed below otherwise noncontributory. Social history: No reported history of drug or alcohol abuse. Family history: As per history of present illness and as reviewed below otherwise noncontributory. Physical exam: HEENT: Atraumatic, normocephalic, pupils reactive, negative for conjunctival pallor or scleral icterus, mucous membranes moist, throat clear, neck supple, nontender, trachea midline. Sinus tenderness right greater than left diffuse nasal discharge moderate erythema of oropharynx no exudates Lungs: Clear to auscultation, breath sounds equal bilaterally, chest nontender. Heart: S1S2, regular, negative for clicks, rubs, or JVD. Abdomen: Soft, nondistended, nontender. Negative for masses or hepatosplenomegaly. Negative for costovertebral tenderness. Pelvis: Stable nontender. Genitourinary: Deferred. Rectal: Deferred. Extremities: Atraumatic, negative for cords or calf pain. Neurovascular unremarkable. Neuro: Awake, alert, oriented. Cranial nerves II through XII unremarkable. Cerebellum unremarkable. Motor and sensory unremarkable throughout. Exam nonfocal. Diagnostics: [CT head no contrast ] Therapeutics: Augmentin 875 #20 no refill ] Impression: Sinusitis/pharyngitis [Headache Substance abuse ] Definitive disposition and diagnosis as appropriate pending reevaluation and review of above. headache Pain Score (Numeric/FACES): 10 - Related Data Allergies Allergy/AdvReac Type Severity Reaction Status Date / Time morphine Allergy Rash Verified 12/31/17 07:23 Home Meds: Home Meds Albuterol Sulfate [Proair Hfa] 1 puff IH ASDIRECTED PRN 08/12/16 [History] Past Medical History - Past Health History Medical/Surgical History: Denies Medical/Surgical History HEENT History: Reports: None Cardiovascular History: Reports: None Respiratory History: Reports: Asthma Gastrointestinal History: Reports: None Genitourinary History: Reports: None Musculoskeletal History: Reports: None Neurological History: Reports: None Psychiatric History: Reports: Suicide Attempt Endocrine/Metabolic History: Reports: None Hematologic History: Reports: None Immunologic History: Reports: None Oncologic (Cancer) History: Reports: None Dermatologic History: Reports: None - Infectious Disease History Infectious Disease History: Reports: None - Past Surgical History Head Surgeries/Procedures: Reports: None HEENT Surgical History: Reports: None GI Surgical History: Reports: Appendectomy Social & Family History - Family History Family Medical History: Noncontributory - Caffeine Use Caffeine Use: Reports: None Caffeine Use Comment: 2drinks/day ED ROS GENERAL - Review of Systems Review Of Systems: See Below ED EXAM, GENERAL - Physical Exam Exam: See Below Course - Vital Signs Last Recorded V/S: Last Vital Signs Temp 97.5 F 06/13/18 11:31 Pulse 115 H 06/13/18 11:31 Resp 18 06/13/18 11:31 BP 137/87 06/13/18 11:31 Pulse Ox 95 06/13/18 11:31 - Orders/Labs/Meds Meds: Medications Discontinued Medications Generic Name Dose Route Start Last Admin Trade Name Dasia PRN Reason Stop Dose Admin Sodium Chloride 1,000 mls @ 999 mls/hr 06/13/18 11:15 06/13/18 11:39 Normal Saline IV 06/13/18 12:15 Not Given STAT ONE Lorazepam 1 mg 06/13/18 11:15 06/13/18 11:39 Ativan IVPUSH 06/13/18 11:16 Not Given ONETIME ONE Departure - Departure Time of Disposition: 12:23 Disposition: Home, Self-Care 01 Condition: Good Clinical Impression: Sinusitis, Pharyngitis - Discharge Information Referrals: PCP,Unknown [Primary Care Provider] - Forms: ED Department Discharge Additional Instructions: The following information is given to patients seen in the emergency department who are being discharged to home. This information is to outline your options for follow-up care. We provide all patients seen in our emergency department with a follow-up referral. The need for follow-up, as well as the timing and circumstances, are variable depending upon the specifics of your emergency department visit. If you don't have a primary care physician on staff, we will provide you with a referral. We always advise you to contact your personal physician following an emergency department visit to inform them of the circumstance of the visit and for follow-up with them and/or the need for any referrals to a consulting specialist. The emergency department will also refer you to a specialist when appropriate. This referral assures that you have the opportunity for follow-up care with a specialist. All of these measure are taken in an effort to provide you with optimal care, which includes your follow-up. Under all circumstances we always encourage you to contact your private physician who remains a resource for coordinating your care. When calling for follow-up care, please make the office aware that this follow-up is from your recent emergency room visit. If for any reason you are refused follow-up, please contact the [facility] emergency department at and asked to speak to the emergency department charge nurse.
[2018-06-13 11:32] VITALS: BP 137/87
--- NOTE | 2018-06-13 12:13 | CT ---
INDICATION: Headache and sinus pressure. TECHNIQUE: CT head without contrast. COMPARISON: None FINDINGS: No acute intracranial hemorrhage, mass effect or midline shift is identified. The ventricular system is midline and symmetric. No skull fracture is seen. There is mild paranasal sinus mucosal thickening present in the maxillary and ethmoid sinuses with mucus suspected in the right naris. The remainder of the visualized paranasal sinuses and mastoid air cells are normally aerated. IMPRESSION: 1. No acute intracranial abnormality or skull fracture. 2. Mild paranasal sinus inflammatory changes. Please note that all CT scans at this facility use dose modulation, iterative reconstruction, and/or weight-based dosing when appropriate to reduce radiation dose to as low as reasonably achievable. Dictated by Jack Smalls MD @ Jun 13 2018 12:05PM Signed by Dr. Jack Smalls @ Jun 13 2018 12:11PM
== END 2018-06-13 12:40 | disposition home or self-care (01) ==
LOC: MW.ED 11:14
DX: J02.9 Acute pharyngitis, unspecified (principal); J32.9 Chronic sinusitis, unspecified; J45.909 Unspecified asthma, uncomplicated; Z88.5 Allergy status to narcotic agent; Z79.899 Other long term (current) drug therapy
CPT/HCPCS: 70450; 70450-26; 99284-25

== ENCOUNTER 2018-08-04 11:51 | Emergency (ER) | payer SELFPAY ==
[2018-08-04] MEDS ORDERED: Acetaminophen/HYDROcodone 325-5 MG Tab PO ONE (12:12)
[2018-08-04] MEDS ORDERED: traMADol 50 MG Tab PO ONE (12:16)
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
--- NOTE | 2018-08-04 12:36 | CR ---
EXAMINATION: PA chest and right RIBS HISTORY: Injury FINDINGS: The trachea is midline. The cardiomediastinal silhouette is within normal limits. No pulmonary infiltrates, effusions or pneumothorax. Osseous structures appear unremarkable. No displaced rib fracture identified. IMPRESSION: No acute cardiopulmonary process.
--- NOTE | 2018-08-04 12:39 | CR ---
EXAMINATION: Left wrist HISTORY: Injury COMPARISON: None TECHNIQUE: 3 views FINDINGS/IMPRESSION: There is no acute osseous abnormality, dislocation, or fracture. Bone mineralization and joint spaces are preserved. Radiocarpal alignment is normal.
== END 2018-08-04 13:12 | disposition home or self-care (01) ==
LOC: MW.ED 11:51
DX: S20.211A Contusion of right front wall of thorax, initial encounter (principal); S69.92XA Unspecified injury of left wrist, hand and finger(s), initial encounter; J45.909 Unspecified asthma, uncomplicated; Z88.5 Allergy status to narcotic agent; V86.56XA Driver of dirt bike or motor/cross bike injured in nontraffic accident, initial encounter
CPT/HCPCS: 71101-26-RT; 71101-RT; 73110-26-LT; 73110-LT; 99283-25

== ENCOUNTER 2018-11-25 04:34 | Emergency (ER) | payer SELFPAY ==
[2018-11-25] MEDS ORDERED: methylPREDNISolone Sodium Succinate 125 MG/2 ML SDV IM ONE (04:35)
[2018-11-25] MEDS ORDERED: Albuterol/Ipratropium 3.0-0.5 MG/3 ML Neb Soln NEB ONE (04:35)
--- NOTE | 2018-11-25 04:37 | EDM.PDOC ---
ED HPI GENERAL MEDICAL PROBLEM - General Stated Complaint: ASTHMA Time Seen by Provider: 11/25/18 04:36 Source of Information: Reports: Patient - History of Present Illness INITIAL COMMENTS - FREE TEXT/NARRATIVE: HISTORY AND PHYSICAL: History of present illness: []Patient well known to me Here for asthma symptoms wheezing tonight he has been using nebs at home continues to wheeze is not in any apparent distress no retractions speaks in full sentences as secondary complaint of sore throat increasing in severity over the last 4 days no muffled voice drooling or trismus Or nausea vomiting chills sweats Review of systems: As per history of present illness and below otherwise all systems reviewed and negative. Past medical history: As per history of present illness and as reviewed below otherwise noncontributory. Surgical history: As per history of present illness and as reviewed below otherwise noncontributory. Social history: No reported history of drug or alcohol abuse. Family history: As per history of present illness and as reviewed below otherwise noncontributory. Physical exam: HEENT: Atraumatic, normocephalic, pupils reactive, negative for conjunctival pallor or scleral icterus, mucous membranes moist, throat clear, neck supple, nontender, trachea midline. Uttered erythema tonsils 3+ no meningeal signs Lungs: Clear to auscultation, breath sounds equal bilaterally, chest nontender. Heart: S1S2, regular, negative for clicks, rubs, or JVD. Abdomen: Soft, nondistended, nontender. Negative for masses or hepatosplenomegaly. Negative for costovertebral tenderness. Pelvis: Stable nontender. Genitourinary: Deferred. Rectal: Deferred. Extremities: Atraumatic, negative for cords or calf pain. Neurovascular unremarkable. Neuro: Awake, alert, oriented. Cranial nerves II through XII unremarkable. Cerebellum unremarkable. Motor and sensory unremarkable throughout. Exam nonfocal. Diagnostics: [Chest 1 view ] Therapeutics: [DuoNeb Solu-Medrol ]Azithromycin Prednisone Impression: Asthma exacerbatio Pharyngitis/tonsillitis definitive disposition and diagnosis as appropriate pending reevaluation and review of above. Throat Pain Score (Numeric/FACES): 8 - Related Data Allergies Allergy/AdvReac Type Severity Reaction Status Date / Time morphine Allergy Rash Verified 11/25/18 04:40 Home Meds: Home Meds Albuterol Sulfate [Proair Hfa] 1 puff IH ASDIRECTED PRN 08/12/16 [History] Albuterol [Proventil Neb Soln] 1.25 mg INH ASDIRECTED 11/25/18 [History] Albuterol [Ventolin HFA] 8 gm INH ASDIRECTED 11/25/18 [History] Past Medical History - Past Health History Medical/Surgical History: Denies Medical/Surgical History HEENT History: Reports: None Cardiovascular History: Reports: None Respiratory History: Reports: Asthma Gastrointestinal History: Reports: None Genitourinary History: Reports: None Musculoskeletal History: Reports: None Neurological History: Reports: None Psychiatric History: Reports: Suicide Attempt Endocrine/Metabolic History: Reports: None Hematologic History: Reports: None Immunologic History: Reports: None Oncologic (Cancer) History: Reports: None Dermatologic History: Reports: None - Infectious Disease History Infectious Disease History: Reports: None - Past Surgical History Head Surgeries/Procedures: Reports: None HEENT Surgical History: Reports: None GI Surgical History: Reports: Appendectomy Social & Family History - Family History Family Medical History: Noncontributory - Caffeine Use Caffeine Use: Reports: None Caffeine Use Comment: 2drinks/day ED ROS GENERAL - Review of Systems Review Of Systems: See Below ED EXAM, GENERAL - Physical Exam Exam: See Below Course - Vital Signs Last Recorded V/S: Last Vital Signs Temp 97.6 F 11/25/18 04:42 Pulse 93 11/25/18 04:42 Resp 20 11/25/18 04:42 BP 137/84 11/25/18 04:42 Pulse Ox 93 L 11/25/18 04:42 - Orders/Labs/Meds Orders: Active Orders 24 hr Category Date Time Status RT Aerosol Therapy [RC] ASDIRECTED Care 11/25/18 04:36 Active Chest 1V Frontal [CR] Stat Exams 11/25/18 04:36 Ordered Meds: Medications Discontinued Medications Generic Name Dose Route Start Last Admin Trade Name Freq PRN Reason Stop Dose Admin Albuterol/Ipratropium 3 ml 11/25/18 04:35 Duoneb 3.0-0.5 Mg/3 Ml NEB 11/25/18 04:36 ONETIME ONE Azithromycin 500 mg 11/25/18 04:46 Zithromax PO 11/25/18 04:47 NOW STA Methylprednisolone Sodium Succinate 125 mg 11/25/18 04:35 Solu-Medrol IM 11/25/18 04:36 ONETIME ONE Departure - Departure Time of Disposition: 04:48 Disposition: Home, Self-Care 01 Condition: Good Clinical Impression: Tonsillitis, Pharyngitis - Discharge Information Additional Instructions: The following information is given to patients seen in the emergency department who are being discharged to home. This information is to outline your options for follow-up care. We provide all patients seen in our emergency department with a follow-up referral. The need for follow-up, as well as the timing and circumstances, are variable depending upon the specifics of your emergency department visit. If you don't have a primary care physician on staff, we will provide you with a referral. We always advise you to contact your personal physician following an emergency department visit to inform them of the circumstance of the visit and for follow-up with them and/or the need for any referrals to a consulting specialist. The emergency department will also refer you to a specialist when appropriate. This referral assures that you have the opportunity for follow-up care with a specialist. All of these measure are taken in an effort to provide you with optimal care, which includes your follow-up. Under all circumstances we always encourage you to contact your private physician who remains a resource for coordinating your care. When calling for follow-up care, please make the office aware that this follow-up is from your recent emergency room visit. If for any reason you are refused follow-up, please contact the [facility] emergency department at and asked to speak to the emergency department charge nurse. - My Orders Last 24 Hours: My Active Orders 11/25/18 04:36 RT Aerosol Therapy [RC] ASDIRECTED Chest 1V Frontal [CR] Stat - Assessment/Plan Last 24 Hours: My Active Orders 11/25/18 04:36 RT Aerosol Therapy [RC] ASDIRECTED Chest 1V Frontal [CR] Stat
[2018-11-25] MEDS ORDERED: Azithromycin 250 MG Tab PO STA (04:46)
[2018-11-25 05:47] VITALS: BP 132/86
--- NOTE | 2018-11-25 06:26 | CR ---
INDICATION: Asthma and shortness of breath. TECHNIQUE: Portable chest. COMPARISON: 11/18/2017. FINDINGS: The heart and mediastinum are unchanged. Lungs are clear. No consolidations or pleural effusions. Trachea is midline. IMPRESSION: Stable chest. No evidence of acute disease. Dictated by Maico Gilman MD @ Nov 25 2018 5:13PM Signed by Dr. Maico Gilman @ Nov 25 2018 5:14PM
== END 2018-11-25 05:45 | disposition home or self-care (01) ==
LOC: MW.ED 04:34
DX: J45.901 Unspecified asthma with (acute) exacerbation (principal); J03.90 Acute tonsillitis, unspecified; Z88.5 Allergy status to narcotic agent
CPT/HCPCS: 71045; 96372; 99283; A9270; J2930; 99282; J7620-GY

== ENCOUNTER 2018-12-22 19:59 | Emergency (ER) | payer SELFPAY ==
[2018-12-22 20:13] VITALS: BP 110/68; PULSE 80
--- NOTE | 2018-12-22 20:28 | EDM.PDOC ---
ED HPI GENERAL MEDICAL PROBLEM - General Chief Complaint: ENT Problem Stated Complaint: PT HAS EAR INFECTION Time Seen by Provider: 12/22/18 20:18 - History of Present Illness INITIAL COMMENTS - FREE TEXT/NARRATIVE: HISTORY AND PHYSICAL: History of present illness: The patient is a 23-year-old male who is a known history of asthma and has been seen here in the emergency department multiple times or asthma and other complaints and presents with 3 days of right ear pain a slight sore throat and some body aches. He has had no fever no coughing no shortness of breath chest pain or abdominal pain. He is eating and drinking normally. He does tell me he went swimming last week and is not sure if that triggered the pain in his ear. He says the discomfort in his right ear is now giving him a headache and is making his throat more sore. He says that his asthma has been controlled with his inhalers. Review of systems: As per history of present illness and below otherwise all systems reviewed and negative. Past medical history: As per history of present illness and as reviewed below otherwise noncontributory. Surgical history: As per history of present illness and as reviewed below otherwise noncontributory. Social history: No reported history of drug or alcohol abuse. Family history: As per history of present illness and as reviewed below otherwise noncontributory. Physical exam: General: Well-developed well-nourished man who is nontoxic and vital signs were noted by me. He has a raspiness to his voice but it is not muffled or hoarse. HEENT: Atraumatic, normocephalic, pupils reactive, negative for conjunctival pallor or scleral icterus, mucous membranes moist, throat clear of exudates but there is some tonsillar erythema, uvula is midline, there is some shoddy anterior cervical adenopathy but no posterior adenopathy and no nuchal rigidity , neck supple, nontender, trachea midline. TMs are normal bilaterally with slight dullness on the right but there is cerumen and debris in the external canal on the right with swelling and tenderness on exam. There is no mastoid tenderness or erythema Lungs: Clear to auscultation with a fine wheeze in the mid left lung field without work of breathing, breath sounds equal bilaterally, chest nontender. Heart: S1S2, regular rate and rhythm no overt murmurs Abdomen: Soft, nondistended, nontender. Negative for masses or hepatosplenomegaly. Negative for costovertebral tenderness. Pelvis: Deferred Genitourinary: Deferred. Rectal: Deferred. Extremities: Atraumatic, negative for cords or calf pain. Neurovascular unremarkable. Neuro: Awake, alert, oriented. Cranial nerves II through XII unremarkable. Cerebellum unremarkable. Motor and sensory unremarkable throughout. Exam nonfocal. Diagnostics: Rapid strep Therapeutics: [] Impression: Right otitis externa Definitive disposition and diagnosis as appropriate pending reevaluation and review of above. Right Ear Pain Score (Numeric/FACES): 7 - Related Data Allergies Allergy/AdvReac Type Severity Reaction Status Date / Time morphine Allergy Rash Verified 12/22/18 20:11 Home Meds: Home Meds Albuterol Sulfate [Albuterol Sulfate Hfa] 1 - 2 puff INH ASDIRECTED 12/22/18 [ History] Past Medical History - Past Health History Medical/Surgical History: Denies Medical/Surgical History HEENT History: Reports: None Cardiovascular History: Reports: None Respiratory History: Reports: Asthma, Bronchitis, Recurrent Gastrointestinal History: Reports: None Genitourinary History: Reports: None Musculoskeletal History: Reports: None Neurological History: Reports: None Psychiatric History: Reports: Anxiety, Depression, Suicide Attempt Endocrine/Metabolic History: Reports: None Hematologic History: Reports: None Immunologic History: Reports: None Oncologic (Cancer) History: Reports: None Dermatologic History: Reports: None - Infectious Disease History Infectious Disease History: Reports: None - Past Surgical History Head Surgeries/Procedures: Reports: None HEENT Surgical History: Reports: None GI Surgical History: Reports: Appendectomy Social & Family History - Family History Family Medical History: Noncontributory - Tobacco Use Smoking Status *Q: Never Smoker - Caffeine Use Caffeine Use: Reports: None Caffeine Use Comment: 2drinks/day - Recreational Drug Use Recreational Drug Use: Yes Drug Use in Last 12 Months: Yes Recreational Drug Type: Reports: Marijuana/Hashish Recreational Drug Use Frequency: Daily ED ROS GENERAL - Review of Systems Review Of Systems: ROS reveals no pertinent complaints other than HPI. ED EXAM, GENERAL - Physical Exam Exam: See Below (See dictation) Course - Vital Signs Last Recorded V/S: Last Vital Signs Temp 36.4 C 12/22/18 20:09 Pulse 80 12/22/18 20:09 Resp BP 110/68 12/22/18 20:09 Pulse Ox 95 12/22/18 20:09 - Orders/Labs/Meds Orders: Active Orders 24 hr Category Date Time Status CULTURE STREP A CONFIRMATION [] Stat Lab 12/22/18 20:24 Results STREP SCRN A RAPID W CULT CONF [RM] Stat Lab 12/22/18 20:24 Results Departure - Departure Time of Disposition: 20:46 Disposition: Home, Self-Care 01 Condition: Good Clinical Impression: Otitis externa Qualifiers: Otitis externa type: unspecified type Chronicity: acute Laterality: right Qualified Code(s): H60.501 - Unspecified acute noninfective otitis externa, right ear - Discharge Information Referrals: PCP,None [Primary Care Provider] - Forms: ED Department Discharge Additional Instructions: The following information is given to patients seen in the emergency department who are being discharged to home. This information is to outline your options for follow-up care. We provide all patients seen in our emergency department with a follow-up referral. The need for follow-up, as well as the timing and circumstances, are variable depending upon the specifics of your emergency department visit. If you don't have a primary care physician on staff, we will provide you with a referral. We always advise you to contact your personal physician following an emergency department visit to inform them of the circumstance of the visit and for follow-up with them and/or the need for any referrals to a consulting specialist. The emergency department will also refer you to a specialist when appropriate. This referral assures that you have the opportunity for followup care with a specialist. All of these measure are taken in an effort to provide you with optimal care, which includes your followup. Under all circumstances we always encourage you to contact your private physician who remains a resource for coordinating your care. When calling for followup care, please make the office aware that this follow-up is from your recent emergency room visit. If for any reason you are refused follow-up, please contact the [facility] emergency department at and ask to speak to the emergency department charge nurse. [facility] Primary care- Internal Medicine and Family [address] [id number] Use [id number] Tylenol or ibuprofen for pain and push hydration. Please use your asthma medication as scheduled and please keep head of your asthma as we discussed. Call and schedule a follow-up appointment with a provider in the clinic for reevaluation and further care. Please make sure to get your flu shot when you're able. Use all medications as prescribed and put nothing into the right ear until you're done with the treatment therapy. Return to ER as needed and as discussed - My Orders Last 24 Hours: My Active Orders 12/22/18 20:24 CULTURE STREP A CONFIRMATION [RM] Stat STREP SCRN A RAPID W CULT CONF [] Stat - Assessment/Plan Last 24 Hours: My Active Orders 12/22/18 20:24 CULTURE STREP A CONFIRMATION [RM] Stat STREP SCRN A RAPID W CULT CONF [] Stat
== END 2018-12-22 20:53 | disposition home or self-care (01) ==
LOC: MW.ED 19:59
DX: H60.501 Unspecified acute noninfective otitis externa, right ear (principal); Z90.49 Acquired absence of other specified parts of digestive tract
CPT/HCPCS: 87081; 87880-QW; 99283

== ENCOUNTER 2019-04-14 14:34 | Emergency (ER) | payer SELFPAY ==
[2019-04-14] MEDS ORDERED: Haloperidol Lactate 5 MG/ML SDV IM ONE ×2 (14:36→15:41)
[2019-04-14] MEDS ORDERED: diphenhydrAMINE 50 MG/ML SDV IM ONE (14:37)
[2019-04-14] MEDS ORDERED: LORazepam 2 MG/ML SDV IM ONE (14:38)
[2019-04-14 15:33] LABS: ACETAMINOPHEN <2.0 ug/mL; SODIUM,NA 142 mmol/L (136-148)
[2019-04-14 15:37] LABS: BLOOD UREA NITROGEN,BUN 16 mg/dL (7.0-18.0); CARBON DIOXIDE,CO2 24.1 mmol/L (21.0-32.0); CHLORIDE,CL 103 mmol/L (98-107); GLUCOSE RANDOM 97 mg/dL (74-106); POTASSIUM,K 3.9 mmol/L (3.5-5.1)
[2019-04-14] MEDS ORDERED: LORazepam 2 MG/ML SDV IVPUSH ONE (15:41)
[2019-04-14] MEDS ORDERED: diphenhydrAMINE 50 MG/ML SDV IVPUSH ONE (15:41)
[2019-04-14] MEDS ORDERED: Haloperidol Lactate 5 MG/ML SDV ONE ×2 (15:43→16:01)
[2019-04-14] MEDS ORDERED: LORazepam 2 MG/ML SDV ONE (15:44)
[2019-04-14] MEDS ORDERED: diphenhydrAMINE 50 MG/ML SDV ONE (15:44)
[2019-04-14] MEDS ORDERED: Ziprasidone Mesylate 20 MG Vial IM ONE ×2 (16:08→20:44)
[2019-04-14] MEDS ORDERED: Water For Injection, Sterile 20 ML SDV INJECT ONE ×2 (16:08→20:44)
--- NOTE | 2019-04-14 16:36 | EDM.PDOCBH ---
ED HPI GENERAL MEDICAL PROBLEM - General Chief Complaint: Behavioral/Psych Stated Complaint: PD Time Seen by Provider: 04/14/19 14:35 - History of Present Illness INITIAL COMMENTS - FREE TEXT/NARRATIVE: Running by police with suicidal ideation voiced suicidal thoughts and plan killing himself to various people including police brought in by police for evaluation. Patient initially was cooperative now does not want to stay. Patient is at high risk for committing suicide based on his threats of jumping out of the car and various other threats of methods of killing himself. Denies any drug use denies any alcohol abuse. Denies any overdose today - Related Data Allergies Allergy/AdvReac Type Severity Reaction Status Date / Time morphine Allergy Rash Verified 04/14/19 14:50 Home Meds: Home Meds Albuterol Sulfate [Albuterol Sulfate Hfa] 1 - 2 puff INH ASDIRECTED 12/22/18 [ History] Past Medical History - Past Health History Medical/Surgical History: Denies Medical/Surgical History HEENT History: Reports: None Cardiovascular History: Reports: None Respiratory History: Reports: Asthma, Bronchitis, Recurrent Gastrointestinal History: Reports: None Genitourinary History: Reports: None Musculoskeletal History: Reports: None Neurological History: Reports: None Psychiatric History: Reports: Anxiety, Depression, Suicide Attempt Endocrine/Metabolic History: Reports: None Hematologic History: Reports: None Immunologic History: Reports: None Oncologic (Cancer) History: Reports: None Dermatologic History: Reports: None - Infectious Disease History Infectious Disease History: Reports: None - Past Surgical History Head Surgeries/Procedures: Reports: None HEENT Surgical History: Reports: None GI Surgical History: Reports: Appendectomy Social & Family History - Family History Family Medical History: Noncontributory - Tobacco Use Smoking Status *Q: Never Smoker - Caffeine Use Caffeine Use: Reports: None Caffeine Use Comment: 2drinks/day - Recreational Drug Use Recreational Drug Use: Yes Recreational Drug Type: Reports: Marijuana/Hashish ED ROS GENERAL - Review of Systems Review Of Systems: See Below Constitutional: Reports: No Symptoms HEENT: Reports: No Symptoms Respiratory: Reports: No Symptoms Cardiovascular: Reports: No Symptoms GI/Abdominal: Reports: No Symptoms Psychiatric: Reports: Depression, Suicidal Ideation ED EXAM, BEHAVIORAL HEALTH - Physical Exam Exam: See Below Exam Limited By: No Limitations General Appearance: Alert, WD/WN, No Apparent Distress Ears: Normal External Exam, Normal Canal, Hearing Grossly Normal, Normal TMs Nose: Normal Inspection, Normal Mucosa, No Blood Throat/Mouth: Normal Inspection, Normal Lips, Normal Teeth, Normal Gums, Normal Oropharynx, Normal Voice, No Airway Compromise Head: Atraumatic, Normocephalic Neck: Normal Inspection, Supple, Non-Tender, Full Range of Motion Respiratory/Chest: No Respiratory Distress, Lungs Clear, Normal Breath Sounds, No Accessory Muscle Use, Chest Non-Tender Cardiovascular: Normal Peripheral Pulses, Regular Rate, Rhythm, No Edema, No Gallop, No JVD, No Murmur, No Rub GI/Abdominal: Normal Bowel Sounds, Soft, Non-Tender, No Organomegaly, No Distention, No Abnormal Bruit, No Mass Back Exam: Normal Inspection, Full Range of Motion, NT Extremities: Normal Inspection, Normal Range of Motion, Non-Tender, Normal Capillary Refill, No Pedal Edema Neurological: Alert, Normal Mood/Affect, CN II-XII Intact, Normal Cognition, Normal Gait, Normal Reflexes, No Motor/Sensory Deficits, Oriented x 3 Psychiatric: Depressed Mood, Tearful, Suicidal Plan, Suicidal Thoughts Skin Exam: Warm, Dry, Intact COURSE, BEHAVIORAL HEALTH COMP - Course Vital Signs: Last Vital Signs Temp 97.2 F 04/14/19 14:58 Pulse 84 04/14/19 14:58 Resp 18 04/14/19 14:58 BP 146/87 H 04/14/19 14:58 Pulse Ox 97 04/14/19 14:58 Orders, Labs, Meds: Laboratory Tests 04/14/19 04/14/19 04/14/19 Range/Units 14:45 14:45 15:10 WBC 5.49 (4.0-11.0) K/uL RBC 5.00 (4.50-5.90) M/uL Hgb 15.8 (13.0-17.0) g/dL Hct 44.5 (38.0-50.0) % MCV 89.0 (80.0-98.0) fL MCH 31.6 (27.0-32.0) pg MCHC 35.5 (31.0-37.0) g/dL RDW Std Deviation 39.8 (28.0-62.0) fl RDW Coeff of Cait 13 (11.0-15.0) % Plt Count 263 (150-400) K/uL MPV 10.10 (7.40-12.00) fL Neut % (Auto) 57.3 (48.0-80.0) % Lymph % (Auto) 23.3 (16.0-40.0) % Summers % (Auto) 15.8 H (0.0-15.0) % Eos % (Auto) 2.7 (0.0-7.0) % Baso % (Auto) 0.9 (0.0-1.5) % Neut # (Auto) 3.1 (1.4-5.7) K/uL Lymph # (Auto) 1.3 (0.6-2.4) K/uL Summers # (Auto) 0.9 H (0.0-0.8) K/uL Eos # (Auto) 0.2 (0.0-0.7) K/uL Baso # (Auto) 0.1 (0.0-0.1) K/uL Nucleated RBC % 0.0 /100WBC Nucleated RBCs # 0 K/uL Sodium 142 (136-148) mmol/L Potassium 3.9 (3.5-5.1) mmol/L Chloride 103 (98-107) mmol/L Carbon Dioxide 24.1 (21.0-32.0) mmol/L BUN 16 (7.0-18.0) mg/dL Creatinine 1.1 (0.8-1.3) mg/dL Est Cr Clr Drug Dosing 123.51 mL/min Estimated GFR (MDRD) > 60.0 ml/min Glucose 97 (74-106) mg/dL Calcium 9.6 (8.5-10.1) mg/dL Total Bilirubin 0.4 (0.2-1.0) mg/dL AST 24 (15-37) IU/L ALT 41 (14-63) IU/L Alkaline Phosphatase 97 (46-116) U/L Total Protein 8.5 H (6.4-8.2) g/dL Albumin 4.2 (3.4-5.0) g/dL Globulin 4.3 H (2.6-4.0) g/dL Albumin/Globulin Ratio 1.0 (0.9-1.6) Salicylates 2.9 (0-20) mg/dL Urine Opiates Screen NEGATIVE (NEGATIVE) Ur Oxycodone Screen NEGATIVE (NEGATIVE) Urine Methadone Screen NEGATIVE (NEGATIVE) Acetaminophen <2.0 ug/mL Ur Barbiturates Screen NEGATIVE (NEGATIVE) Ur Phencyclidine Scrn NEGATIVE (NEGATIVE) Ur Amphetamine Screen NEGATIVE (NEGATIVE) U Methamphetamines Scrn NEGATIVE (NEGATIVE) U Benzodiazepines Scrn NEGATIVE (NEGATIVE) U Cocaine Metab Screen NEGATIVE (NEGATIVE) U Marijuana (THC) Screen POSITIVE (NEGATIVE) Ethyl Alcohol < 3.0 mg/dL Medications Discontinued Medications Generic Name Dose Route Start Last Admin Trade Name Freq PRN Reason Stop Dose Admin Diphenhydramine HCl 50 mg 04/14/19 14:37 Benadryl IM 04/14/19 14:38 ONETIME ONE Diphenhydramine HCl 50 mg 04/14/19 15:41 04/14/19 15:53 Benadryl IVPUSH 04/14/19 15:42 50 mg ONETIME ONE Administration Diphenhydramine HCl Confirm 04/14/19 15:44 Benadryl Administered 04/14/19 15:45 Dose 50 mg .ROUTE .STK-MED ONE Haloperidol Lactate 5 mg 04/14/19 14:36 Haldol IM 04/14/19 14:37 ONETIME ONE Haloperidol Lactate 5 mg 04/14/19 15:41 04/14/19 15:54 Haldol IM 04/14/19 15:42 5 mg ONETIME ONE Administration Haloperidol Lactate Confirm 04/14/19 15:43 Haldol Administered 04/14/19 15:44 Dose 5 mg .ROUTE .STK-MED ONE Haloperidol Lactate Confirm 04/14/19 16:01 04/14/19 16:29 Haldol Administered 04/14/19 16:02 Not Given Dose 5 mg .ROUTE .STK-MED ONE Lorazepam 2 mg 04/14/19 14:38 Ativan IM 04/14/19 14:39 ONETIME ONE Lorazepam 2 mg 04/14/19 15:41 04/14/19 15:51 Ativan IVPUSH 04/14/19 15:42 2 mg ONETIME ONE Administration Lorazepam Confirm 04/14/19 15:44 04/14/19 16:28 Ativan Administered 04/14/19 15:45 Not Given Dose 2 mg .ROUTE .STK-MED ONE Sterile Water 1.2 ml 04/14/19 16:08 Sterile Water For Injection INJECT 04/14/19 16:09 ONETIME ONE Ziprasidone 10 mg 04/14/19 16:08 Geodon IM 04/14/19 16:09 ONETIME ONE Departure - Departure Time of Disposition: 16:35 Disposition: DC/Tfer to Psych Hosp/Unit 65 Condition: Good Clinical Impression: Depressive disorder, Suicide ideation - Discharge Information Referrals: PCP,None [Primary Care Provider] - Sepsis Event Note - Evaluation Sepsis Screening Result: No Definite Risk - Focused Exam Vital Signs: Vital Signs Temp Pulse Resp BP Pulse Ox 04/14/19 14:58 97.2 F 84 18 146/87 H 97 Date Exam was Performed: 04/14/19 Time Exam was Performed: 16:32
[2019-04-14] MEDS ORDERED: Ziprasidone Mesylate 20 MG Vial ONE (20:07)
[2019-04-14] MEDS ORDERED: Water For Injection, Sterile 20 ML ONE (20:09)
[2019-04-14 21:59] VITALS: BP 138/75; PULSE 76
== END 2019-04-14 21:15 ==
LOC: MW.ED 14:34
DX: F32.9 Major depressive disorder, single episode, unspecified (principal); J45.909 Unspecified asthma, uncomplicated; Z88.5 Allergy status to narcotic agent
CPT/HCPCS: 80053; 80305; 80320; 80329; 85025; 96372; 96374; 96375; 99285; J1200; J1630; J2060; J3486; 99283; G0480

== ENCOUNTER 2019-06-20 23:59 | Emergency (ER) | payer SELFPAY ==
[2019-06-21] MEDS ORDERED: Terbutaline 1 MG/ML SDV SUBCUT ONE (00:17)
[2019-06-21] MEDS ORDERED: predniSONE 20 MG Tab PO ONE (00:18)
--- NOTE | 2019-06-21 00:24 | EDM.PDOC ---
ED [facility] GENERAL MEDICAL PROBLEM - General Chief Complaint: Respiratory Problem Stated Complaint: SOB Time Seen by Provider: 06/21/19 00:22 Source of Information: Reports: Patient History Limitations: Reports: No Limitations - History of Present Illness INITIAL COMMENTS - FREE TEXT/NARRATIVE: Patient is 23-year-old male past medical history of asthma presenting with a chief complaint of chest tightness and shortness of breath. Patient states the chest tightness is been ongoing for the past 1 week. Patient states his symptoms have not improved. Patient reports some relief with the inhaler but not much. Patient reports that his not taking other medications for asthma. In addition, patient is complaining of blood in the stool. Patient reports having chronic constipation and this week has been having some diarrhea. Patient reports no some small amount of blood but not gross blood in the stool. Patient reports it is painful when he wipes his bottom. Patient denies any abdominal pain. Patient denies any fevers. Patient denies any recent travels. Pmhx: Asthma Pshx: None Family Hx: noncontributory Smoking history? no Etoh use? none Drug use? none In addition to that documented in the HPI above, the additional ROS was obtained : Constitutional: Denies fevers or chills Eyes: Denies vision changes ENMT: Denies sore throat CV: Denies chest pain Resp: Denies SOB GI: Denies vomiting or diarrhea : Denies painful urination MSK: Denies recent trauma Skin: Denies new rashes Neuro: Denies new numbness or tingling or weakness Endocrine: Denies unexpected weight loss Heme: Denies bleeding disorders I have reviewed the triage vital signs Const: Well nourished, well developed, appears stated age Eyes: PERRL, no conjunctival injection HENT: NCAT, Neck supple without meningismus CV: RRR, Warm, well-perfused extremities RESP: Scant bilateral wheezes. Unlabored respiratory effort GI: soft, non-tender, non-distended, no masses Rectal: No signs of external hemorrhoids. Stool is light brown in color MSK: No gross deformities appreciated Skin: Warm, dry. 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 Sensation and motor function of extremities grossly intact. Psych: Appropriate mood and affect Assessment and plan: Patient is 23-year-old male presenting with chief complaint shortness of breath consistent with asthma. Patient given terbutaline and steroids with improvement of symptoms in the emergency department. Considerations were made for pneumonia which is much less likely given the history and exam. In addition , PE is much less likely as she is PERC negative. Patient also carries a diagnosis of anal fissure and has no evidence of GI bleeding. Also considered colitis which seems less likely given the presentation. Patient prescribed topical medication and will follow-up as an outpatient. I gave patient return precautions. He agrees with plan. - Related Data Allergies Allergy/AdvReac Type Severity Reaction Status Date / Time morphine Allergy Rash Verified 06/21/19 00:09 Home Meds: Home Meds Albuterol Sulfate [Albuterol Sulfate Hfa] 1 - 2 puff INH ASDIRECTED 12/22/18 [ History] Docusate Sodium [Colace] 100 mg PO BID #30 capsule 06/21/19 [Rx] Lidocaine 30 gm TP TID #1 cream..g. 06/21/19 [Rx] predniSONE [Prednisone] 40 mg PO DAILY #8 tablet 06/21/19 [Rx] Past Medical History - Past Health History Medical/Surgical History: Denies Medical/Surgical History HEENT History: Reports: None Cardiovascular History: Reports: None Respiratory History: Reports: Asthma, Bronchitis, Recurrent Gastrointestinal History: Reports: None Genitourinary History: Reports: None Musculoskeletal History: Reports: None Neurological History: Reports: None Psychiatric History: Reports: Anxiety, Depression, Suicide Attempt Endocrine/Metabolic History: Reports: None Hematologic History: Reports: None Immunologic History: Reports: None Oncologic (Cancer) History: Reports: None Dermatologic History: Reports: None - Infectious Disease History Infectious Disease History: Reports: None - Past Surgical History Head Surgeries/Procedures: Reports: None HEENT Surgical History: Reports: None GI Surgical History: Reports: Appendectomy Social & Family History - Family History Family Medical History: Noncontributory - Tobacco Use Smoking Status *Q: Never Smoker - Caffeine Use Caffeine Use: Reports: None Caffeine Use Comment: 2drinks/day - Recreational Drug Use Recreational Drug Use: Yes Drug Use in Last 12 Months: Yes Recreational Drug Type: Reports: Marijuana/Hashish Recreational Drug Use Frequency: Socially ED ROS GENERAL - Review of Systems Review Of Systems: See Below ED EXAM, GENERAL - Physical Exam Exam: See Below Course - Vital Signs Last Recorded V/S: Last Vital Signs Temp 36.6 C 06/21/19 01:15 Pulse 106 H 06/21/19 01:15 Resp 16 06/21/19 01:15 BP 142/58 H 06/21/19 01:15 Pulse Ox 98 06/21/19 01:15 - Orders/Labs/Meds Meds: Medications Discontinued Medications Generic Name Dose Route Start Last Admin Trade Name Dasia PRN Reason Stop Dose Admin Prednisone 40 mg 06/21/19 00:18 06/21/19 00:31 Prednisone PO 06/21/19 00:19 40 mg ONETIME ONE Administration Terbutaline Sulfate 0.25 mg 06/21/19 00:17 06/21/19 00:47 Brethine SUBCUT 06/21/19 00:18 0.25 mg ONETIME ONE Administration Terbutaline Sulfate Confirm 06/21/19 00:41 Brethine Administered 06/21/19 00:42 Dose 1 mg .ROUTE .STK-MED ONE Departure - Departure Time of Disposition: 00:58 Disposition: Home, Self-Care 01 Clinical Impression: Asthma, Rectal fissure - Discharge Information Prescriptions: Docusate Sodium [Colace] 100 mg PO BID #30 capsule Lidocaine 30 gm TP TID #1 cream..g. predniSONE [Prednisone] 40 mg PO DAILY #8 tablet Instructions: Anal Fissure, Adult, [id number], Asthma, Adult, [id number] Referrals: PCP,None [Primary Care Provider] - Forms: ED Department Discharge Additional Instructions: The following information is given to patients seen in the emergency department who are being discharged to home. This information is to outline your options for follow-up care. We provide all patients seen in our emergency department with a follow-up referral. The need for follow-up, as well as the timing and circumstances, are variable depending upon the specifics of your emergency department visit. If you don't have a primary care physician on staff, we will provide you with a referral. We always advise you to contact your personal physician following an emergency department visit to inform them of the circumstance of the visit and for follow-up with them and/or the need for any referrals to a consulting specialist. The emergency department will also refer you to a specialist when appropriate. This referral assures that you have the opportunity for follow-up care with a specialist. All of these measure are taken in an effort to provide you with optimal care, which includes your follow-up. Under all circumstances we always encourage you to contact your private physician who remains a resource for coordinating your care. When calling for follow-up care, please make the office aware that this follow-up is from your recent emergency room visit. If for any reason you are refused follow-up, please contact the [facility] Emergency Department at and asked to speak to the emergency department charge nurse. Sepsis Event Note - Evaluation Sepsis Screening Result: No Definite Risk - Focused Exam Vital Signs: Vital Signs Temp Pulse Resp BP Pulse Ox 06/21/19 01:15 36.6 C 106 H 16 142/58 H 98 06/21/19 00:05 36.4 C 96 16 127/75 96 Date Exam was Performed: 06/21/19 Time Exam was Performed: 02:08
[2019-06-21] MEDS ORDERED: Terbutaline 1 MG/ML SDV ONE (00:41)
[2019-06-21 01:16] VITALS: BP 142/58; PULSE 106
== END 2019-06-21 01:16 | disposition home or self-care (01) ==
LOC: MW.ED 23:59
DX: J45.909 Unspecified asthma, uncomplicated (principal); K60.2 Anal fissure, unspecified; Z88.5 Allergy status to narcotic agent
CPT/HCPCS: 96372; 99283; 99284; A9270-GY; J3105

== ENCOUNTER 2019-07-18 23:27 | Emergency (ER) | payer SELFPAY ==
[2019-07-18] MEDS ORDERED: Albuterol/Ipratropium 3.0-0.5 MG/3 ML Neb Soln NEB ONE ×2 (23:32→23:45)
[2019-07-18] MEDS ORDERED: predniSONE 20 MG Tab PO ONE (23:32)
--- NOTE | 2019-07-18 23:43 | EDM.PDOC ---
ED HPI GENERAL MEDICAL PROBLEM - General Chief Complaint: Asthma Stated Complaint: SHORTNESS OF BREATH, COUGH Time Seen by Provider: 07/18/19 23:30 Source of Information: Reports: Patient History Limitations: Reports: No Limitations - History of Present Illness INITIAL COMMENTS - FREE TEXT/NARRATIVE: HISTORY OF PRESENT ILLNESS: Patient is a 23-year-old male with history of asthma who presents the ER with complaints of shortness of breath and chest wall tightness which feels typical of his usual asthma which started today. Patient used his home inhaler and nebulizer without improvement of symptoms. Last steroid use was approximately 1 month ago. No prior intubations. Denies any recent fevers or chills. No retrosternal chest pain. No abdominal pain. Denies any back pain. No rash. He does not know what triggered his asthma exacerbation today. REVIEW OF SYSTEMS: Other than the symptoms associated with the present events, the following is reported with regard to recent health: General: (-) fever. HENT: (-) congestion. Respiratory: (+)shortness of breath. Cardiovascular: (-) chest pain. (+) chest wall tightness which feels typical of his usual asthma GI: (-) abdominal pain. : (-) urinary complaints. Musculoskeletal: (-) other aches or pains. Endocrine: (-) generalized weakness. Neurological: (-) localized weakness. Skin: (-) rash PAST MEDICAL HISTORY: reviewed as per nursing notes SOCIAL HISTORY: reviewed as per nursing notes, MEDICATIONS: Per nurse's note ALLERGIES: Per nurse's note, reviewed by me PHYSICAL EXAMINATION: GENERALIZED APPEARANCE: well developed, well nourished in mild respiratory distress VITAL SIGNS: Per nurse's note, reviewed by me SKIN: Warm, dry; (-) cyanosis; (-) rash. HEAD: (-) scalp swelling, (-) tenderness. EYES: (-) conjunctival pallor, (-) scleral icterus. ENMT: (-) stridor; mucous membranes moist. NECK: (-) tenderness, (-) stiffness, CHEST AND RESPIRATORY: (-) rales, (-) rhonchi, (-) wheezes; breath sounds equal bilaterally. slightly decreased breath sounds bilaterally. HEART AND CARDIOVASCULAR: (-) irregularity; (-) murmur, (-) gallop. ABDOMEN AND GI: Soft; (-) tenderness, (-) guarding, (-) rebound, (-) palpable masses, EXTREMITIES: (-) deformity, (-) edema. NEURO AND PSYCH: Alert. Cranial nerves grossly intact; strength symmetric. gait steady EMERGENCY DEPARTMENT COURSE AND TREATMENT: Patient's condition improved during Emergency Department evaluation. Given duonebs, prednisone with resolution of symptoms. On reexamination, breathing unlabored, no respiratory distress, has normal RR, pattern and pulse ox. Ambulating without difficulty. Breath sounds clear and equal bilaterally. PLAN AND FOLLOW-UP: Patient received written and verbal instructions regarding this condition. Return to ED immediately with any new or worsening symptoms. Follow up to be arranged by patient with pcp in 1-2 days for further evaluation. Given discharge precautions. patient expressed verbal understanding. - Related Data Allergies Allergy/AdvReac Type Severity Reaction Status Date / Time morphine Allergy Rash Verified 07/18/19 23:39 Home Meds: Home Meds Albuterol Sulfate [Albuterol Sulfate Hfa] 1 - 2 puff INH ASDIRECTED 12/22/18 [ History] Docusate Sodium [Colace] 100 mg PO BID #30 capsule 06/21/19 [Rx] Lidocaine 30 gm TP TID #1 cream..g. 06/21/19 [Rx] predniSONE [Prednisone] 40 mg PO DAILY #8 tablet 06/21/19 [Rx] predniSONE [Prednisone] 50 mg PO DAILY #5 tablet 07/19/19 [Rx] Past Medical History - Past Health History Medical/Surgical History: Denies Medical/Surgical History HEENT History: Reports: None Cardiovascular History: Reports: None Respiratory History: Reports: Asthma, Bronchitis, Recurrent Gastrointestinal History: Reports: None Genitourinary History: Reports: None Musculoskeletal History: Reports: None Neurological History: Reports: None Psychiatric History: Reports: Anxiety, Depression, Suicide Attempt Endocrine/Metabolic History: Reports: None Hematologic History: Reports: None Immunologic History: Reports: None Oncologic (Cancer) History: Reports: None Dermatologic History: Reports: None - Infectious Disease History Infectious Disease History: Reports: None - Past Surgical History Head Surgeries/Procedures: Reports: None HEENT Surgical History: Reports: None GI Surgical History: Reports: Appendectomy Social & Family History - Family History Family Medical History: Noncontributory - Caffeine Use Caffeine Use: Reports: None Caffeine Use Comment: 2drinks/day ED ROS GENERAL - Review of Systems Review Of Systems: See Below (see dictation) ED EXAM, GENERAL - Physical Exam Exam: See Below (see dictation) Course - Vital Signs Last Recorded V/S: Last Vital Signs Temp 97 F 07/18/19 23:30 Pulse 97 07/18/19 23:30 Resp 20 07/18/19 23:30 BP 135/92 H 07/18/19 23:30 Pulse Ox 98 07/18/19 23:30 - Orders/Labs/Meds Orders: Active Orders 24 hr Category Date Time Status RT Aerosol Therapy [RC] ASDIRECTED Care 07/18/19 23:32 Active RT Aerosol Therapy [RC] ASDIRECTED Care 07/18/19 23:45 Active Meds: Medications Discontinued Medications Generic Name Dose Route Start Last Admin Trade Name Toniq PRN Reason Stop Dose Admin Albuterol/Ipratropium 9 ml 07/18/19 23:32 07/18/19 23:45 Duoneb 3.0-0.5 Mg/3 Ml NEB 07/18/19 23:33 9 ml ONETIME ONE Administration Albuterol/Ipratropium 3 ml 07/18/19 23:45 07/18/19 23:47 Duoneb 3.0-0.5 Mg/3 Ml NEB 07/18/19 23:46 Not Given ONETIME ONE Prednisone 60 mg 07/18/19 23:32 07/18/19 23:47 Prednisone PO 07/18/19 23:33 60 mg ONETIME ONE Administration Departure - Departure Time of Disposition: 00:11 Disposition: Home, Self-Care 01 Condition: Good Clinical Impression: Acute asthma - Discharge Information *PRESCRIPTION DRUG MONITORING PROGRAM REVIEWED*: Not Applicable *COPY OF PRESCRIPTION DRUG MONITORING REPORT IN PATIENT WILEY: Not Applicable Prescriptions: predniSONE [Prednisone] 50 mg PO DAILY #5 tablet Instructions: Asthma, Adult, How to Use a Nebulizer, Adult, Metered Dose Inhaler (No Spacer Used), How to Use a Metered Dose Inhaler Referrals: Ana Holloway [Ordering Only Provider] - 1 Day Forms: ED Department Discharge Additional Instructions: The following information is given to patients seen in the emergency department who are being discharged to home. This information is to outline your options for follow-up care. We provide all patients seen in our emergency department with a follow-up referral. The need for follow-up, as well as the timing and circumstances, are variable depending upon the specifics of your emergency department visit. If you don't have a primary care physician on staff, we will provide you with a referral. We always advise you to contact your personal physician following an emergency department visit to inform them of the circumstance of the visit and for follow-up with them and/or the need for any referrals to a consulting specialist. The emergency department will also refer you to a specialist when appropriate. This referral assures that you have the opportunity for follow-up care with a specialist. All of these measure are taken in an effort to provide you with optimal care, which includes your follow-up. Under all circumstances we always encourage you to contact your private physician who remains a resource for coordinating your care. When calling for follow-up care, please make the office aware that this follow-up is from your recent emergency room visit. If for any reason you are refused follow-up, please contact the [facility] Emergency Department at and asked to speak to the emergency department charge nurse. Sepsis Event Note - Evaluation Sepsis Screening Result: No Definite Risk - Focused Exam Vital Signs: Vital Signs Temp Pulse Resp BP Pulse Ox 07/18/19 23:30 97 F 97 20 135/92 H 98 Date Exam was Performed: 07/19/19 Time Exam was Performed: 00:11 - My Orders Last 24 Hours: My Active Orders 07/18/19 23:32 RT Aerosol Therapy [RC] ASDIRECTED 07/18/19 23:45 RT Aerosol Therapy [RC] ASDIRECTED - Assessment/Plan Last 24 Hours: My Active Orders 07/18/19 23:32 RT Aerosol Therapy [RC] ASDIRECTED 07/18/19 23:45 RT Aerosol Therapy [RC] ASDIRECTED
[2019-07-19 00:51] VITALS: BP 124/77; PULSE 96
== END 2019-07-19 00:15 | disposition home or self-care (01) ==
LOC: MW.ED 23:27
DX: J45.909 Unspecified asthma, uncomplicated (principal); Z90.49 Acquired absence of other specified parts of digestive tract; Z88.5 Allergy status to narcotic agent; Z79.899 Other long term (current) drug therapy
CPT/HCPCS: 94640; 99284; A9270; 99282; J7620-GY

== ENCOUNTER 2019-07-29 14:48 | Emergency (ER) | payer OTHER ==
[2019-07-29] MEDS ORDERED: Sodium Chloride 0.9% 1,000 ML IV ONE (15:10)
[2019-07-29] MEDS ORDERED: Sodium Chloride 0.9% 2.5 ML Syringe FLUSH PRN (15:10)
[2019-07-29] MEDS ORDERED: Sodium Chloride 0.9% 10 ML Syringe FLUSH PRN (15:10)
[2019-07-29] MEDS ORDERED: Ketorolac 30 MG/ML SDV IVPUSH ONE (15:11)
[2019-07-29] MEDS ORDERED: diphenhydrAMINE 50 MG/ML SDV IVPUSH ONE (15:12)
[2019-07-29] MEDS ORDERED: Metoclopramide 10 MG/2 ML SDV IVPUSH ONE (15:12)
--- NOTE | 2019-07-29 15:15 | EDM.PDOC ---
ED HPI GENERAL MEDICAL PROBLEM - General Chief Complaint: Headache Stated Complaint: HEADACHE Time Seen by Provider: 07/29/19 14:55 - History of Present Illness INITIAL COMMENTS - FREE TEXT/NARRATIVE: History of present illness: [Presents with 3 days of headache it is mostly right-sided and is throbbing there is been no nausea or vomiting patient states he has headaches occasionally the onset was gradual no trauma no fever. Has taken ibuprofen or Tylenol at home and it relieves it for some time but then it comes back. No ocular symptoms no symptoms of fever chills or cough nothing seems to make it completely go away but there are pain-free intervals after medication.] Review of systems: As per history of present illness and below otherwise all systems reviewed and negative. Past medical history: As per history of present illness and as reviewed below otherwise noncontributory. Surgical history: As per history of present illness and as reviewed below otherwise noncontributory. Social history: No reported history of drug or alcohol abuse. Family history: As per history of present illness and as reviewed below otherwise noncontributory. Physical exam: HEENT: Atraumatic, normocephalic, pupils reactive, negative for conjunctival pallor or scleral icterus, mucous membranes moist, throat clear, neck supple, nontender, trachea midline. Lungs: Clear to auscultation, breath sounds equal bilaterally, chest nontender. Heart: S1S2, regular, negative for clicks, rubs, or JVD. Abdomen: Soft, nondistended, nontender. Negative for masses or hepatosplenomegaly. Negative for costovertebral tenderness. Pelvis: Stable nontender. Genitourinary: Deferred. Rectal: Deferred. Extremities: Atraumatic, negative for cords or calf pain. Neurovascular unremarkable. Neuro: Awake, alert, oriented. Cranial nerves II through XII unremarkable. Cerebellum unremarkable. Motor and sensory unremarkable throughout. Exam nonfocal. No pronator drift Diagnostics: [] Therapeutics: [] Impression: Headache [] Plan: Patient will be placed on oxygen he will then be given Reglan Benadryl and Toradol liter of saline and reassessed. I do not believe that this headache of gradual onset without fever or trauma is a cerebral hemorrhage or meningitis. [] Definitive disposition and diagnosis as appropriate pending reevaluation and review of above. headache Pain Score (Numeric/FACES): 6 - Related Data Allergies Allergy/AdvReac Type Severity Reaction Status Date / Time morphine Allergy Rash Verified 07/29/19 15:02 Home Meds: Home Meds Albuterol Sulfate [Albuterol Sulfate Hfa] 1 - 2 puff INH ASDIRECTED 12/22/18 [ History] predniSONE [Prednisone] 40 mg PO DAILY #8 tablet 06/21/19 [Rx] predniSONE [Prednisone] 50 mg PO DAILY #5 tablet 07/19/19 [Rx] Naproxen [EC-Naproxen] 500 mg PO Q12HR #20 tablet. 07/29/19 [Rx] Past Medical History - Past Health History Medical/Surgical History: Denies Medical/Surgical History HEENT History: Reports: None Cardiovascular History: Reports: None Respiratory History: Reports: Asthma, Bronchitis, Recurrent Gastrointestinal History: Reports: None Genitourinary History: Reports: None Musculoskeletal History: Reports: None Neurological History: Reports: None Psychiatric History: Reports: Anxiety, Depression, Suicide Attempt Endocrine/Metabolic History: Reports: None Insulin Pump Model and Cad Engineer: None Hematologic History: Reports: None Immunologic History: Reports: None Oncologic (Cancer) History: Reports: None Dermatologic History: Reports: None - Infectious Disease History Infectious Disease History: Reports: None - Past Surgical History Head Surgeries/Procedures: Reports: None HEENT Surgical History: Reports: None GI Surgical History: Reports: Appendectomy Social & Family History - Family History Family Medical History: Noncontributory - Tobacco Use Smoking Status *Q: Never Smoker - Caffeine Use Caffeine Use: Reports: Soda Caffeine Use Comment: 2drinks/day - Recreational Drug Use Recreational Drug Use: No ED ROS GENERAL - Review of Systems Review Of Systems: See Below ED EXAM, GENERAL - Physical Exam Exam: See Below Course - Vital Signs Text/Narrative:: Better after medications and wants to leave prior to his fluids being finished can be discharged home on naproxen follow-up with primary care Last Recorded V/S: Last Vital Signs Temp 36.4 C 07/29/19 15:03 Pulse 86 07/29/19 15:03 Resp 18 07/29/19 15:03 BP 134/77 07/29/19 15:03 Pulse Ox 98 07/29/19 15:03 - Orders/Labs/Meds Orders: Active Orders 24 hr Category Date Time Status Oxygen Therapy Adult [Oxygen Therapy] [RC] ASDIRECTED Care 07/29/19 15:12 Active Sodium Chloride 0.9% [Saline Flush] Med 07/29/19 15:10 Active 10 ml FLUSH ASDIRECTED PRN Sodium Chloride 0.9% [Saline Flush] Med 07/29/19 15:10 Active 2.5 ml FLUSH ASDIRECTED PRN Saline Lock Insert [OM.PC] Stat Oth 07/29/19 15:10 Ordered Medication Orders Sodium Chloride (Saline Flush) 10 ml FLUSH ASDIRECTED PRN PRN Reason: Keep Vein Open Sodium Chloride (Saline Flush) 2.5 ml FLUSH ASDIRECTED PRN PRN Reason: Keep Vein Open Meds: Medications Generic Name Dose Route Start Last Admin Trade Name Freq PRN Reason Stop Dose Admin Sodium Chloride 10 ml 07/29/19 15:10 Saline Flush FLUSH ASDIRECTED PRN Keep Vein Open Sodium Chloride 2.5 ml 07/29/19 15:10 Saline Flush FLUSH ASDIRECTED PRN Keep Vein Open Discontinued Medications Generic Name Dose Route Start Last Admin Trade Name Freq PRN Reason Stop Dose Admin Diphenhydramine HCl 50 mg 07/29/19 15:12 07/29/19 15:24 Benadryl IVPUSH 07/29/19 15:13 50 mg ONETIME ONE Administration Sodium Chloride 1,000 mls @ 2,000 mls/hr 07/29/19 15:10 07/29/19 15:26 Normal Saline IV 07/29/19 15:39 2,000 mls/hr .Bolus ONE Administration Ketorolac Tromethamine 30 mg 07/29/19 15:11 07/29/19 15:25 Toradol IVPUSH 07/29/19 15:12 30 mg ONETIME ONE Administration Metoclopramide HCl 10 mg 07/29/19 15:12 07/29/19 15:26 Reglan IVPUSH 07/29/19 15:13 10 mg ONETIME ONE Administration Departure - Departure Time of Disposition: 15:48 Disposition: Home, Self-Care 01 Condition: Good Clinical Impression: Cephalgia Qualifiers: Headache type: unspecified Headache chronicity pattern: acute headache - Discharge Information *PRESCRIPTION DRUG MONITORING PROGRAM REVIEWED*: Not Applicable *COPY OF PRESCRIPTION DRUG MONITORING REPORT IN PATIENT WILEY: Not Applicable Instructions: General Headache Without Cause, [id number] Referrals: PCP,None [Primary Care Provider] - Forms: ED Department Discharge Additional Instructions: [facility] - [facility] [address] [place] [address] [facility] [address] [place] [address] The following information is given to patients seen in the emergency department who are being discharged to home. This information is to outline your options for follow-up care. We provide all patients seen in our emergency department with a follow-up referral. The need for follow-up, as well as the timing and circumstances, are variable depending upon the specifics of your emergency department visit. If you don't have a primary care physician on staff, we will provide you with a referral. We always advise you to contact your personal physician following an emergency department visit to inform them of the circumstance of the visit and for follow-up with them and/or the need for any referrals to a consulting specialist. The emergency department will also refer you to a specialist when appropriate. This referral assures that you have the opportunity for follow-up care with a specialist. All of these measure are taken in an effort to provide you with optimal care, which includes your follow-up. Under all circumstances we always encourage you to contact your private physician who remains a resource for coordinating your care. When calling for follow-up care, please make the office aware that this follow-up is from your recent emergency room visit. If for any reason you are refused follow-up, please contact the [facility] Emergency Department at and asked to speak to the emergency department charge nurse. Sepsis Event Note - Evaluation Sepsis Screening Result: No Definite Risk - Focused Exam Vital Signs: Vital Signs Temp Pulse Resp BP Pulse Ox 07/29/19 15:03 36.4 C 86 18 134/77 98 Date Exam was Performed: 07/29/19 Time Exam was Performed: 15:47 - My Orders Last 24 Hours: My Active Orders 07/29/19 15:10 Sodium Chloride 0.9% [Saline Flush] 10 ml FLUSH ASDIRECTED PRN Sodium Chloride 0.9% [Saline Flush] 2.5 ml FLUSH ASDIRECTED PRN Saline Lock Insert [OM.PC] Stat 07/29/19 15:12 Oxygen Therapy Adult [Oxygen Therapy] [RC] ASDIRECTED - Assessment/Plan Last 24 Hours: My Active Orders 07/29/19 15:10 Sodium Chloride 0.9% [Saline Flush] 10 ml FLUSH ASDIRECTED PRN Sodium Chloride 0.9% [Saline Flush] 2.5 ml FLUSH ASDIRECTED PRN Saline Lock Insert [OM.PC] Stat 07/29/19 15:12 Oxygen Therapy Adult [Oxygen Therapy] [RC] ASDIRECTED
[2019-07-29 16:07] VITALS: BP 129/68; PULSE 82
== END 2019-07-29 16:00 | disposition home or self-care (01) ==
LOC: MW.ED 14:48
DX: R51 Headache (principal); J45.909 Unspecified asthma, uncomplicated; Z88.5 Allergy status to narcotic agent
CPT/HCPCS: 96361; 96374; 96375; 99284; J1200; J1885; J2765; J7030; 99283

== ENCOUNTER 2019-10-23 15:35 | Emergency (ER) | payer SELFPAY ==
--- NOTE | 2019-10-23 15:39 | EDM.PDOC ---
ED HPI GENERAL MEDICAL PROBLEM - General Stated Complaint: TROUBLE BREATHING,TIGHTNESS IN CHEST Time Seen by Provider: 10/23/19 15:36 Source of Information: Reports: Patient History Limitations: Reports: No Limitations - History of Present Illness INITIAL COMMENTS - FREE TEXT/NARRATIVE: HISTORY AND PHYSICAL: History of present illness: Patient is a 24-year-old male who presents to the emergency room with complaints of cough and shortness of breath. Patient has a longstanding history of asthma, takes a rescue inhaler as needed. He states he was out of town for several weeks and recently returned home. His roommate has a cat and he has been exposed to a lot of cat dander/hair. He states his eyes are itchy/watery. He used his inhaler prior to arrival but feels he needs a steroid. Patient denies any fever, chills, headache, change in vision, syncope or near syncope. Denies any chest pain, back pain, GI or symptoms. Patient has been eating and drinking appropriately. Review of systems: As per history of present illness and below otherwise all systems reviewed and negative. Past medical history: As per history of present illness and as reviewed below otherwise noncontributory. Surgical history: As per history of present illness and as reviewed below otherwise noncontributory. Social history: See social history for further information Family history: As per history of present illness and as reviewed below otherwise noncontributory. Physical exam: General: Well-developed and well-nourished 24-year-old male. Alert and oriented. Nontoxic-appearing and in no acute distress. HEENT: Atraumatic, normocephalic, pupils equal and reactive bilaterally, negative for conjunctival pallor or scleral icterus, mucous membranes moist, TMs normal bilaterally, throat clear, neck supple, nontender, trachea midline. No drooling or trismus noted. No meningeal signs. No hot potato voice noted. Lungs: Poor air exchange with expiratory wheezing bilaterally, breath sounds equal bilaterally, chest nontender. Heart: S1S2, regular rate and rhythm without overt murmur Abdomen: Soft, nondistended, nontender. Skin: Intact, warm, dry. No lesions or rashes noted. Extremities: Atraumatic, moves all extremities per self without difficulty or deficits, negative for cords or calf pain. Neurovascular unremarkable. Neuro: Awake, alert, oriented. Cranial nerves II through XII unremarkable. Cerebellum unremarkable. Motor and sensory unremarkable throughout. Exam nonfocal. Notes: I did offer to do a chest x-ray, he declines. We will do a nebulizer while here along with prednisone PO. She feels improved after the breathing treatment. Lung sounds have improved. Vital signs are stable. Supportive care measures were reviewed and discussed. Voices understanding and is agreeable to plan of care. Denies any further questions or concerns at this time. Diagnostics: Declines Therapeutics: Duo Neb, Prednisone Prescription: Prednisone Impression: Asthma exacerbation Plan: 1. Take your medications as directed and use your inhaler/nebulizer as needed. 2. You may want to consider qjej-nqp-alavguw allergy medication for your cat allergy. 3. If your symptoms should worsen, new symptoms develop or any of the signs and symptoms we discussed should arise please return to the emergency room or call 911 (if needed). Follow-up with your primary care provider as needed and as d iscussed. Definitive disposition and diagnosis as appropriate pending reevaluation and review of above. - Related Data Allergies Allergy/AdvReac Type Severity Reaction Status Date / Time morphine Allergy Rash Verified 10/23/19 15:38 Home Meds: Home Meds Albuterol Sulfate [Albuterol Sulfate Hfa] 1 - 2 puff INH ASDIRECTED 12/22/18 [History] predniSONE [Prednisone] 50 mg PO DAILY #5 tablet 07/19/19 [Rx] predniSONE [Prednisone] 50 mg PO DAILY #5 tablet 10/23/19 [Rx] Past Medical History - Past Health History Medical/Surgical History: Denies Medical/Surgical History HEENT History: Reports: None Cardiovascular History: Reports: None Respiratory History: Reports: Asthma, Bronchitis, Recurrent Gastrointestinal History: Reports: None Genitourinary History: Reports: None Musculoskeletal History: Reports: None Neurological History: Reports: None Psychiatric History: Reports: Anxiety, Depression, Suicide Attempt Endocrine/Metabolic History: Reports: None Insulin Pump Model and Research Environmental Scientist: None Hematologic History: Reports: None Immunologic History: Reports: None Oncologic (Cancer) History: Reports: None Dermatologic History: Reports: None - Infectious Disease History Infectious Disease History: Reports: None - Past Surgical History Head Surgeries/Procedures: Reports: None HEENT Surgical History: Reports: None GI Surgical History: Reports: Appendectomy Social & Family History - Family History Family Medical History: Noncontributory - Caffeine Use Caffeine Use: Reports: Soda Caffeine Use Comment: 2drinks/day ED ROS GENERAL - Review of Systems Review Of Systems: Comprehensive ROS is negative, except as noted in HPI. ED EXAM, GENERAL - Physical Exam Exam: See Below (See dictation) Course - Vital Signs Last Recorded V/S: Last Vital Signs Temp 97.2 F 10/23/19 16:14 Pulse 94 10/23/19 16:14 Resp 18 10/23/19 16:14 BP 142/80 H 10/23/19 16:14 Pulse Ox 96 10/23/19 16:14 - Orders/Labs/Meds Orders: Active Orders 24 hr Category Date Time Status RT Aerosol Therapy [RC] ASDIRECTED Care 10/23/19 15:46 Active Meds: Medications Discontinued Medications Generic Name Dose Route Start Last Admin Trade Name Freq PRN Reason Stop Dose Admin Albuterol/Ipratropium 3 ml 10/23/19 15:45 10/23/19 15:51 Duoneb 3.0-0.5 Mg/3 Ml NEB 10/23/19 15:46 3 ml ONETIME ONE Administration Prednisone 60 mg 10/23/19 15:46 10/23/19 15:51 Prednisone PO 10/23/19 15:47 60 mg ONETIME ONE Administration Departure - Departure Time of Disposition: 16:02 Disposition: Home, Self-Care 01 Clinical Impression: Exacerbation of asthma Qualifiers: Asthma severity: mild Asthma persistence: unspecified Qualified Code(s): J45.901 - Unspecified asthma with (acute) exacerbation - Discharge Information Prescriptions: predniSONE [Prednisone] 50 mg PO DAILY #5 tablet Instructions: Asthma, Adult, Qsbr-jf-Smme Forms: ED Department Discharge Additional Instructions: The following information is given to patients seen in the emergency department who are being discharged to home. This information is to outline your options for follow-up care. We provide all patients seen in our emergency department with a follow-up referral. The need for follow-up, as well as the timing and circumstances, are variable depending upon the specifics of your emergency department visit. If you don't have a primary care physician on staff, we will provide you with a referral. We always advise you to contact your personal physician following an emergency department visit to inform them of the circumstance of the visit and for follow-up with them and/or the need for any referrals to a consulting specialist. The emergency department will also refer you to a specialist when appropriate. This referral assures that you have the opportunity for follow-up care with a specialist. All of these measure are taken in an effort to provide you with optimal care, which includes your follow-up. Under all circumstances we always encourage you to contact your private physician who remains a resource for coordinating your care. When calling for follow-up care, please make the office aware that this follow-up is from your recent emergency room visit. If for any reason you are refused follow-up, please contact the [facility] Emergency Department at and asked to speak to the emergency department charge nurse. [facility] [address] [place] [id number] [address] Thank you for choosing the [facility] emergency department in [place] for your medical needs today. It was a pleasure caring for you. Today you were seen in the emergency department for asthma exacerbation. 1. Take your medications as directed and use your inhaler/nebulizer as needed. 2. You may want to consider aptx-sha-bsgnzvx allergy medication for your cat allergy. 3. If your symptoms should worsen, new symptoms develop or any of the signs and symptoms we discussed should arise please return to the emergency room or call 911 (if needed). Follow-up with your primary care provider as needed and as discussed. Sepsis Event Note (ED) - Focused Exam Vital Signs: Vital Signs Temp Pulse Resp BP Pulse Ox 10/23/19 16:14 97.2 F 94 18 142/80 H 96 10/23/19 15:39 97.2 F 104 H 18 151/84 H 96 - My Orders Last 24 Hours: My Active Orders 10/23/19 15:46 RT Aerosol Therapy [RC] ASDIRECTED - Assessment/Plan Last 24 Hours: My Active Orders 10/23/19 15:46 RT Aerosol Therapy [RC] ASDIRECTED
[2019-10-23] MEDS ORDERED: Albuterol/Ipratropium 3.0-0.5 MG/3 ML Neb Soln NEB ONE (15:45)
[2019-10-23] MEDS ORDERED: predniSONE 20 MG Tab PO ONE (15:46)
[2019-10-23 16:29] VITALS: BP 142/80; PULSE 94
== END 2019-10-23 16:15 | disposition home or self-care (01) ==
LOC: MW.ED 15:35
DX: J45.901 Unspecified asthma with (acute) exacerbation (principal); Z88.5 Allergy status to narcotic agent
CPT/HCPCS: 99284; A9270; 99282; J7620-GY

== ENCOUNTER 2019-10-25 23:39 | Emergency (ER) | payer SELFPAY ==
[2019-10-25 23:47] VITALS: BP 153/83
[2019-10-26] MEDS ORDERED: predniSONE 20 MG Tab PO ONE (00:05)
--- NOTE | 2019-10-26 00:12 | EDM.PDOC ---
ED HPI GENERAL MEDICAL PROBLEM - General Chief Complaint: Respiratory Problem Stated Complaint: ASTHMA Time Seen by Provider: 10/25/19 23:43 Source of Information: Reports: Patient, Old Records - History of Present Illness INITIAL COMMENTS - FREE TEXT/NARRATIVE: 24-year-old male with a history of asthma, poorly controlled, seasonal allergies presenting with complaints of chest congestion, cough, wheezing, nasal congestion. Patient was seen in emergency department on 10/23/2019 with identical symptoms. He was prescribed a prednisone burst which he did not fill at the pharmacy. He states that his symptoms recurred this evening, prompting him to come to the emergency department. He states that he used his home albuterol inhaler twice prior to arrival without much relief. He does complain of a nonproductive cough, chest congestion, chest tightness only with breathing, no chest pain while at rest. Reports rhinorrhea and itchy eyes. He is currently taking an maxi-azt-mnzhobp second-generation antihistamine medication but does not know what it is. Denies any resting chest pain, leg swelling, hemoptysis, history of VTE, fever, sick contacts. ROS: A 10-point review of systems was negative, except as noted in the HPI (or in the ROS section of this note). Past medical history: Reviewed, no additional pertinent history. Surgical history: Reviewed in system, no additional pertinent history. Social history: Reviewed in system, no additional pertinent history. Family history: Reviewed in system, no additional pertinent history. PHYSICAL EXAM Vital signs reviewed. Nursing notes reviewed. Constitutional: Awake, alert, non-distressed. Head: Normocephalic, atraumatic. Eyes: EOMI, conjunctiva normal, no discharge, no scleral icterus. Ears, Nose, Throat: External ears and nose normal, moist oral mucosa. Handling secretions well without difficulty. Cardiovascular: 2+ radial pulse, capillary refill less than 2 seconds. Pulmonary: normal work of breathing, no accessory muscle use. CTA BL. Speaking in full sentences. Abdomen/GI: Soft, nontender, nondistended, no guarding or rigidity, no masses. Musculoskeletal: No deformities. Integumentary: Appropriate color for ethnicity, warm, dry, no pallor or jaundice, no rash. Neurologic: Alert, answering questions appropriately, normal speech, no facial droop, moving all extremities well. Psychiatric: Appropriate mood and affect, normal thought process. generalized Pain Score (Numeric/FACES): 6 - Related Data Allergies Allergy/AdvReac Type Severity Reaction Status Date / Time morphine Allergy Rash Verified 10/25/19 23:47 Home Meds: Home Meds Albuterol Sulfate [Albuterol Sulfate Hfa] 1 - 2 puff INH ASDIRECTED 12/22/18 [History] predniSONE [Prednisone] 50 mg PO DAILY #5 tablet 07/19/19 [Rx] predniSONE [Prednisone] 50 mg PO DAILY #5 tablet 10/23/19 [Rx] Albuterol [Ventolin HFA] 1 dose .ROUTE DAILY 10/25/19 [History] Fluticasone Propion/Salmeterol [Advair 250-50 Diskus] 1 dose .ROUTE DAILY 10/25/19 [History] predniSONE [Prednisone] 60 mg PO DAILY 4 Days #12 tablet 10/26/19 [Rx] Past Medical History - Past Health History Medical/Surgical History: Denies Medical/Surgical History HEENT History: Reports: None Cardiovascular History: Reports: None Respiratory History: Reports: Asthma, Bronchitis, Recurrent Gastrointestinal History: Reports: None Genitourinary History: Reports: None Musculoskeletal History: Reports: None Neurological History: Reports: None Psychiatric History: Reports: Anxiety, Depression, Suicide Attempt Endocrine/Metabolic History: Reports: None Insulin Pump Model and Air Quality Specialist: None Hematologic History: Reports: None Immunologic History: Reports: None Oncologic (Cancer) History: Reports: None Dermatologic History: Reports: None - Infectious Disease History Infectious Disease History: Reports: None - Past Surgical History Head Surgeries/Procedures: Reports: None HEENT Surgical History: Reports: None GI Surgical History: Reports: Appendectomy Social & Family History - Family History Family Medical History: Noncontributory - Tobacco Use Smoking Status *Q: Never Smoker - Caffeine Use Caffeine Use: Reports: Soda Caffeine Use Comment: 2drinks/day - Recreational Drug Use Recreational Drug Type: Reports: Marijuana/Hashish Recreational Drug Use Frequency: Daily ED ROS GENERAL - Review of Systems Review Of Systems: See Below ED EXAM, GENERAL - Physical Exam Exam: See Below Course - Vital Signs Text/Narrative:: Differential includes but is not limited to asthma, coronavirus infection, URI, seasonal allergies, pneumonia, pneumothorax, heart failure, pulmonary embolism, etc. Hemodynamically stable, well-appearing. Not tachypneic or hypoxic. No evidence of respiratory compromise. Lung sounds are clear to auscultation. No sign of active bronchospasm by physical examination. I did offer a two-view chest x- ray, which the patient again refused. Low suspicion for acute coronary syndrome or pulmonary embolism given lack of chest discomfort at rest, lack of leg swelling, no chest pressure. Seems to be more consistent with his known history of asthma and states that these symptoms are typical for him. Afebrile, no constitutional infectious symptoms. No clinical signs of heart failure. With no wheezing, there is no indication for nebulized bronchodilators at this point. The patient did not fill his prescribed corticosteroids in the last emergency department visit. We will give him a dose of oral prednisone here and then I sent an alternative prescription to the pharmacy that was more weight appropriate and less expensive. He states that he has his albuterol inhaler at home and does not need a refill. He is already taking an zzny-lff-pdaoxfv antihistamine medication. I recommended an xbzq-ena-uoauvef nasal corticosteroid spray such as Nasonex and we will have him follow-up with a primary medicine clinic in the next couple of days. Strict ED return precautions were provided. All questions answered prior to discharge. Last Recorded V/S: Last Vital Signs Temp 36.9 C 10/25/19 23:42 Pulse 89 10/25/19 23:42 Resp 20 10/25/19 23:42 BP 153/83 H 10/25/19 23:42 Pulse Ox 95 10/25/19 23:42 - Orders/Labs/Meds Meds: Medications Discontinued Medications Generic Name Dose Route Start Last Admin Trade Name Dasia PRN Reason Stop Dose Admin Prednisone 60 mg 10/26/19 00:05 10/26/19 00:09 Prednisone PO 10/26/19 00:06 60 mg ONETIME ONE Administration Departure - Departure Time of Disposition: 00:10 Disposition: Home, Self-Care 01 Condition: Good Clinical Impression: Dyspnea Qualifiers: Dyspnea type: unspecified Qualified Code(s): R06.00 - Dyspnea, unspecified - Discharge Information *PRESCRIPTION DRUG MONITORING PROGRAM REVIEWED*: Not Applicable *COPY OF PRESCRIPTION DRUG MONITORING REPORT IN PATIENT WILEY: Not Applicable Prescriptions: predniSONE [Prednisone] 60 mg PO DAILY 4 Days #12 tablet Instructions: Asthma, Adult, Shortness of Breath, Adult, Ylma-fx-Pomg Referrals: [facility] - Family Practice [Provider Group] - 1 Week (For follow-up of asthma symptoms and to establish primary care.) Forms: ED Department Discharge Additional Instructions: Thank you for choosing the [facility] emergency department in [place] for your medical needs today. It was a pleasure caring for you. You were seen in the emergency department for shortness of breath and chest tightness along with allergic symptoms. At this point, I suspect that your symptoms are due to your known asthma. We did offer to obtain x-rays of your chest and lungs, which you declined. You are given a dose of steroids here in the emergency department and I sent an additional 4 days of prednisone to the pharmacy, be sure that you pick this up and take it as directed. Continue taking the oqfj-cnb-qwyoeav Zyrtec or Claritin once daily. I also recommend that you purchase an fjln-vlt-mxvahzk nasal steroid spray such as Nasonex for your nasal allergy symptoms. You need to establish care with the family medicine clinic and make an appointment for follow-up with your asthma care and to have a general physical examination. Please return the emergency department immediately if your symptoms worsen or if you feel worse. The following information is given to patients seen in the emergency department who are being discharged. This information is to outline your options for follow-up care. We provide all patients seen in our emergency department with a follow-up referral. The need for follow-up, as well as the timing and circumstances, are variable depending upon the specifics of your emergency department visit. If you don't have a primary care physician on staff, we will provide you with a referral. We always advise you to contact your personal physician following an emergency department visit to inform them of the circumstance of the visit and for follow-up with them and/or the need for any referrals to a consulting specialist. The emergency department will also refer you to a specialist when appropriate. This referral assures that you have the opportunity for follow-up care with a specialist. All of these measure are taken in an effort to provide you with optimal care, which includes your follow-up. Under all circumstances we always encourage you to contact your private physician who remains a resource for coordinating your care. When calling for follow-up care, please make the office aware that this follow-up is from your recent emergency room visit. If for any reason you are refused follow-up, please contact the Emergency Department at and asked to speak to the emergency department charge nurse. If you do not have a primary care physician that is caring for you, you can contact these clinics below to set up an appointment to establish care: [facility] [address] [place] [address] [place] [address] Sepsis Event Note (ED) - Evaluation Sepsis Screening Result: No Definite Risk - Focused Exam Vital Signs: Vital Signs Temp Pulse Resp BP Pulse Ox 10/25/19 23:42 36.9 C 89 20 153/83 H 95
[2019-10-26 02:34] VITALS: PULSE 84
== END 2019-10-26 00:20 | disposition home or self-care (01) ==
LOC: MW.ED 23:39
DX: R06.00 Dyspnea, unspecified (principal); J45.909 Unspecified asthma, uncomplicated; Z88.5 Allergy status to narcotic agent; Z79.899 Other long term (current) drug therapy
CPT/HCPCS: 99284; A9270; 99282